=== PATIENT | female | born 1970 | race Caucasian/White ===

== ENCOUNTER 2018-07-26 12:58 | Outpatient (REF) | payer OTHER, SELFPAY ==
[2018-07-26 19:32] LABS: Anion Gap 9.5 mmol/L (3-11); BUN 10 mg/dL (7-18); CO2 27.5 mmol/L (21.0-32.0); CREATININE 0.71 mg/dL (0.55-1.02); Chloride 102 mmol/L (98-107); Cholesterol 214 mg/dL (50-200); Glucose 90 mg/dL (70-100); HDL Cholesterol 77 mg/dL (40-60); LDL CHOLESTEROL 123 mg/dL (<100); Potassium 4.2 mmol/L (3.5-5.1); Sodium 139 mmol/L (136-145); Triglyceride 84 mg/dL (30-150)
== END 2018-07-26 12:59 ==
LOC: NCHCN 12:58
PROVIDERS: PCP Internal Medicine; Visit Provider Internal Medicine
DX: Z00.00 Encounter for general adult medical examination without abnormal findings (principal); Z13.228 Encounter for screening for other metabolic disorders; Z13.220 Encounter for screening for lipoid disorders
CPT/HCPCS: 80048; 80061; 83721

== ENCOUNTER 2019-03-14 14:36 | Outpatient (REF) | payer OTHER, SELFPAY ==
[2019-03-14 19:28] LABS: BUN 10 mg/dL (7-18); CREATININE 0.83 mg/dL (0.55-1.02); Calcium 9.7 mg/dL (8.5-10.1); Chloride 100 mmol/L (98-107); Glucose 99 mg/dL (70-100); Potassium 4.3 mmol/L (3.5-5.1); Sodium 140 mmol/L (136-145); TSH 2.32 uIU/mL (0.358-3.74); Vitamin B12 675 pg/mL (193-986)
== END 2019-03-14 14:56 ==
LOC: NCHCN 14:36
PROVIDERS: PCP Internal Medicine; Visit Provider Internal Medicine
DX: I10 Essential (primary) hypertension (principal); G62.9 Polyneuropathy, unspecified; M47.814 Spondylosis without myelopathy or radiculopathy, thoracic region
CPT/HCPCS: 80048; 82607; 84443

== ENCOUNTER 2019-07-11 00:49 | Outpatient (CLI) | payer OTHER, SELFPAY ==
--- NOTE | 2019-07-11 07:41 | DI.MAMMO_ITS ---
SYMPTOM/DIAGNOSIS: SCREENING Z12.31, PREVENTATIVE CARE Z00.00 MAMMOGRAM: 07/11 Mammograms were interpreted according to the usual protocol including computer analysis with CAD system, tomosynthesis and C view imaging. The breasts are heterogeneously dense. No dominant mass or clumped microcalcifications identified in either breast. The current examination is compared with previous examinations including March 2018 and there has been no gross interval change in appearance in comparison with the previous studies. CONCLUSION: No specific evidence of malignancy at this time. Routine screening examinations are suggested at yearly intervals in this age group according to the ACS/ACR guidelines. Category 1, breast density category C. SA ASSESSMENT OF FINDINGS: Negative. Category 1. Patient will receive a letter notifying them of these results. Bi-RADS category C. The breasts are heterogeneously dense, which may obscure small masses.
== END 2019-07-11 01:09 ==
PROVIDERS: PCP Internal Medicine; Visit Provider Internal Medicine
DX: Z12.31 Encounter for screening mammogram for malignant neoplasm of breast (principal); Z00.00 Encounter for general adult medical examination without abnormal findings
CPT/HCPCS: 77063; 77067

== ENCOUNTER 2020-06-10 15:38 | Outpatient (REF) | payer OTHER, SELFPAY ==
[2020-06-10 20:28] LABS: Anion Gap 7.5 mmol/L (3-11); BUN 13 mg/dL (7-18); CO2 30.5 mmol/L (21.0-32.0); CREATININE 0.79 mg/dL (0.55-1.02); Calcium 9.3 mg/dL (8.5-10.1); Chloride 101 mmol/L (98-107); Glucose 106 mg/dL (74-106); Potassium 3.9 mmol/L (3.5-5.1); Sodium 139 mmol/L (136-145)
== END 2020-06-10 15:58 ==
LOC: NCHCN 15:38
PROVIDERS: PCP Internal Medicine; Visit Provider Internal Medicine
DX: I10 Essential (primary) hypertension (principal); M47.814 Spondylosis without myelopathy or radiculopathy, thoracic region
CPT/HCPCS: 80048

== ENCOUNTER 2020-08-06 04:00 | Outpatient (CLI) | payer OTHER, SELFPAY ==
--- NOTE | 2020-08-06 15:55 | DI.MAMMO_ITS ---
EXAM: MAMMO SCREENING CLINICAL HISTORY: SCREENING, TECHNIQUE: Mammograms were interpreted according to the usual protocol including computer analysis w [employer] CAD system, tomosynthesis and C-view imaging. COMPARISON: 2011 through 2018 FINDINGS: The breasts are composed of heterogeneously dense fibroglandular densities, Breast Density category C . No suspicious masses or suspicious microcalcifications are seen. No skin thickening or abnormal axillary lymph nodes are seen. There has been no significant change from prior exams. IMPRESSION: BI-RADS Category 1: Negative mammogram Yearly screening mammography is recommended. Breast Density - Category C, heterogeneously dense tissue which decreases the sensitivity of the mamm ogram. The mammogram demonstrates the patient's breast tissue is dense. Dense breast tissue is very common a nd is not abnormal but dense breast tissue can make it harder to find cancer on a mammogram. Also, de nse breast tissue may increase breast cancer risk. This information about the result of the mammogram report was provided to the patient to raise their awareness. Use this report when you speak with the patient about their risks for breast cancer, which includes their family history. At that time, you may recommend additional screening tests (Ultrasound or MRI) as they might be useful based on their r isk. A negative radiographic report should not delay biopsy if a dominant or clinically suspicious mass is present. Up to ten percent of cancers are not identified on mammography. A negative report may reinforce clinical impression. Adenosis and dense breasts may obscure an underlying neoplasm. False positive reports average 6 to 10%.
== END 2020-08-06 04:20 ==
PROVIDERS: PCP Internal Medicine; Visit Provider Internal Medicine
DX: Z12.31 Encounter for screening mammogram for malignant neoplasm of breast (principal); R92.2 Inconclusive mammogram
CPT/HCPCS: 77063; 77067

== ENCOUNTER 2021-07-25 11:47 | Outpatient (REF) | payer OTHER, SELFPAY ==
[2021-07-27 16:48] LABS: COVID-19 RT-PCR UVMMC Result Negative (Negative)
== END 2021-07-25 11:48 | disposition home or self-care (01) ==
LOC: NCHCN 11:47
PROVIDERS: PCP Internal Medicine; Visit Provider Internal Medicine
DX: Z11.52 Encounter for screening for COVID-19 (principal); Z20.822 Contact with and (suspected) exposure to COVID-19
CPT/HCPCS: U0003

== ENCOUNTER 2021-08-02 16:54 | Outpatient (REF) | payer OTHER, SELFPAY | END 2021-08-02 16:55 | disposition home or self-care (01) | LOC: NCHCN 16:54 | PROVIDERS: PCP Internal Medicine; Referring Provider Physician Assistant; Visit Provider Physician Assistant | DX: N89.8 Other specified noninflammatory disorders of vagina (principal) | CPT/HCPCS: 87480; 87510; 87660 ==

== ENCOUNTER 2021-08-10 01:43 | Outpatient (CLI) | payer OTHER, SELFPAY ==
--- NOTE | 2021-08-10 | DI.RAD_ITS ---
Exam(s) XR SHOULDER RT COMPLETE 2+V EXAM: XR SHOULDER RT COMPLETE 2+V CLINICAL HISTORY: PAIN RT SHOULDER, M25.511. TECHNIQUE: 2D digital imaging was performed. COMPARISON: No exams were available for comparison FINDINGS: BONES: No acute fracture is present. No bony destructive lesion is seen. JOINTS: No dislocation present. Mild hypertrophic changes are seen at the acromioclavicular joint. SOFT TISSUE: Normal. IMPRESSION: Mild degenerative changes of the right AC joint. DATA REPOSITORY: RADIATION DOSE DELIVERED:
== END 2021-08-10 02:03 ==
PROVIDERS: PCP Internal Medicine; Visit Provider Internal Medicine
DX: M25.511 Pain in right shoulder (principal); M19.011 Primary osteoarthritis, right shoulder
CPT/HCPCS: 73030

== ENCOUNTER 2021-10-13 09:09 | Outpatient (REF) | payer OTHER, SELFPAY ==
[2021-10-13 19:13] LABS: HCT 39.8 % (36.0-46.0); HGB 12.7 g/dL (11.2-15.7); MCH 29.5 pg (27.0-33.0); MCHC 31.9 % (32.0-36.0); MCV 92.6 fL (80-95); MPV 10.4 fL (8.0-11.0); Platelet Count 342 10^3/uL (130-400); RDW 12.6 % (11.7-14.6); RDW-SD 42.8 fL; WBC 7.79 10^3/uL (4.4-10.8)
[2021-10-13 19:52] LABS: Hemoglobin A1C 5.5 % (<5.7); TSH 2.22 uIU/mL (0.36-3.74)
== END 2021-10-13 09:10 | disposition home or self-care (01) ==
LOC: NCHCN 09:09
PROVIDERS: PCP Internal Medicine; Visit Provider Internal Medicine
DX: R53.83 Other fatigue (principal); N92.0 Excessive and frequent menstruation with regular cycle
CPT/HCPCS: 85027; 83036; 84443

== ENCOUNTER 2021-10-14 01:54 | Outpatient (CLI) | payer OTHER, SELFPAY ==
--- NOTE | 2021-10-14 06:45 | DI.US_ITS ---
Exam(s) US PELVIS TRANSVAGINAL EXAM: US PELVIS TRANSVAGINAL CLINICAL HISTORY: Menorrhagia, N92.0 TECHNIQUE: Transabdominal and transvaginal imaging was performed using standard protocol. COMPARISON: No exams were available for comparison FINDINGS: KIDNEYS: Kidneys are symmetric in size. No evidence of renal calculi. No evidence of hydronephrosis. No renal mass or cyst identified. UTERUS: Anteverted. 8.5 x 4.3 x 4.2 cm Endometrium: 7 millimeters. No focal abnormality. Myometrium: Heterogeneous. Small anterior myometrial fibroids. Cervix: Nabothian cysts OVARIES: Right: Cyst or mass: None. Left: Cyst or mass: None. DOPPLER: Color: Symmetric and uniform flow to both ovaries. No hyperemia. Duplex: Normal ovarian arterial waveforms visualized. CUL-DE-SAC: Free fluid: None. IMPRESSION: 1. Small myometrial fibroids. Endometrial stripe within normal limits. 2. Unremarkable bilateral ovaries. DATA REPOSITORY:
--- NOTE | 2021-10-14 09:43 | DI.MAMMO_ITS ---
Exam(s) MAMMO SCREENING EXAM: MAMMO SCREENING CLINICAL HISTORY: screening, Z12.39 TECHNIQUE: Mammograms were interpreted according to the usual protocol including computer analysis w [employer] CAD system, tomosynthesis and C-view imaging. COMPARISON: 2011 through 2019 FINDINGS: The breasts are composed of heterogeneously dense fibroglandular densities, Breast Density category C . No suspicious masses or suspicious microcalcifications are seen. No skin thickening or abnormal axillary lymph nodes are seen. There has been no significant change from prior exams. IMPRESSION: BI-RADS Category 1, Negative mammogram. Yearly screening mammography is recommended. Breast Density Category C, heterogeneously Dense. The mammogram demonstrates the patient's breast tissue is dense. Dense breast tissue is very common a nd is not abnormal but dense breast tissue can make it harder to find cancer on a mammogram. Also, de nse breast tissue may increase breast cancer risk. This information about the result of the mammogram report was provided to the patient to raise their awareness. Use this report when you speak with the patient about their risks for breast cancer, which includes their family history. At that time, you may recommend additional screening tests (Ultrasound or MRI) as they might be useful based on their r isk. A negative radiographic report should not delay biopsy if a dominant or clinically suspicious mass is present. Up to ten percent of cancers are not identified on mammography. A negative report may reinforce clinical impression. Adenosis and dense breasts may obscure an underlying neoplasm. False positive reports average 6 to 10%.
== END 2021-10-14 02:14 ==
PROVIDERS: PCP Internal Medicine; Visit Provider Nurse Practitioner Family
DX: Z13.21 Encounter for screening for nutritional disorder (principal); N92.0 Excessive and frequent menstruation with regular cycle; D25.1 Intramural leiomyoma of uterus
CPT/HCPCS: 77063; 77067; 76830; 76856

== ENCOUNTER 2021-10-21 00:45 | Outpatient (CLI) | payer OTHER, SELFPAY ==
--- NOTE | 2021-10-21 06:45 | DI.MRI_ITS ---
Exam(s) MR UPPER JOINT RT WO EXAM: MR UPPER JOINT RT WO CLINICAL HISTORY: ? ROTATOR CUFF TEAR,PAIN,ARTHRITIS RT AC JOINT,BURSITIS,BICEPS TENDINITIS. TECHNIQUE: Multiplanar multisequence MRI was performed. COMPARISON: None. FINDINGS: Bones: There is no fracture or contusion pattern. The acromioclavicular joint shows moderate spurring as wel l as high signal in the joint and adjacent end of the clavicle. There is mild impingement on the dis wanda supraspinatus muscle. There is spurring at the tip of the acromion. There is a minimal amount o f fluid in the sub acromial subdeltoid bursa and subcoracoid region. Glenohumeral joint: No glenohumeral joint effusion is present. Rotator Cuff: The supraspinatus and infraspinatus tendons are intact. The subscapularis and teres minor are normal. Labrum and biceps anchor: The biceps tendon is located. The anchor is well maintained. The labrum is grossly within normal limi ts. IMPRESSION: AC joint spurring and arthritis with mild impingement. No evidence of rotator cuff tear. DATA REPOSITORY:
== END 2021-10-21 01:05 ==
PROVIDERS: PCP Internal Medicine; Visit Provider Student in an Organized Health Care Education/Training Program
DX: M19.011 Primary osteoarthritis, right shoulder (principal); M75.21 Bicipital tendinitis, right shoulder; M75.51 Bursitis of right shoulder; M75.81 Other shoulder lesions, right shoulder
CPT/HCPCS: 73221

== ENCOUNTER 2022-02-03 09:28 | Outpatient (REF) | payer OTHER, SELFPAY ==
--- NOTE | 2022-02-03 08:30 | PAPFT_PTH ---
PATIENT: Claudia Franks LOC: [facility] U#:[id number] AGE/SX: 52/F ROOM: RE02/03/[address]: Marija Weathers DO : 1970 BED: DIS: 02/03/2022 SPEC #: [id number] RECD: 02/03/22 13:09 STATUS: [facility] REQ #: [id number] AMEYA: 02/03/22 08:[address]: Marija Weathers DEPT: [facility] Cytology RECD BY: Yazmin Yanes ENTERED: 02/03/22 13:09 SP TYPE: PAPFT OTHR DR: Deepak Lechuga Tissues: 1 - CX/ENDOCX FOR PAP SMEARS Procedures: PAP THIN PREP/[facility] Screening HPV DNA PROBE Comments: [id number] (CHLAMYDIA/GC)
[2022-02-07 07:21] LABS: Chlamydia Result Negative (Negative); GC Result Negative (Negative)
== END 2022-02-03 09:29 | disposition home or self-care (01) ==
LOC: LBN 09:28
PROVIDERS: PCP Internal Medicine; Visit Provider Obstetrics & Gynecology
DX: Z12.4 Encounter for screening for malignant neoplasm of cervix (principal); Z11.51 Encounter for screening for human papillomavirus (HPV); Z11.3 Encounter for screening for infections with a predominantly sexual mode of transmission
CPT/HCPCS: 87491; 87591; 88142; 87624

== ENCOUNTER 2022-03-08 02:28 | Outpatient (CLI) | payer OTHER, SELFPAY ==
[2022-03-08 12:49] LABS: Source Nasal/Nares
[2022-03-08 23:21] LABS: COVID-19 PCR Negative (Negative)
== END 2022-03-08 02:29 | disposition home or self-care (01) ==
LOC: LBO 02:28
PROVIDERS: PCP Internal Medicine; Visit Provider Student in an Organized Health Care Education/Training Program
DX: Z20.822 Contact with and (suspected) exposure to COVID-19 (principal); Z01.818 Encounter for other preprocedural examination
CPT/HCPCS: 87635

== ENCOUNTER 2022-03-10 07:28 | Day surgery (SDC) | payer OTHER, SELFPAY ==
[2022-03-10] VITALS (9 sets, daily range): BP systolic 87–114; BP diastolic 34–73; PULSE 70–80; RESP 14–25; TEMP 36–36.5; O2SAT 99–100; BMI 28.8
--- NOTE | 2022-03-10 08:19 | ANES.PREOP_ITS ---
General Info Date of Service Date Performed: 03/10/22 Height: 5 ft 5 in Weight: 78.7 kg Body Mass Index (BMI): 28.8 Surgical Procedure: Operation Date: 03/10/22 08:55 Proposed Procedure Side Surgeon p Shoulder Arthroscopy w/Extensive Debridement,Biceps Tenodesis,Subacromial Decompression and Distal Clavicle Excision Right Gurjit Lopez MD Meds Allergies and Home Medications Allergies Allergy/AdvReac Type Severity Reaction Status Date / Time amoxicillin Allergy Severe Anaphylaxis Unverified 03/10/22 07:35 penicillin G Allergy Severe Anaphylaxsi Unverified 03/10/22 07:35 s doxycycline Allergy Intermediate Skin Rash Unverified 03/10/22 07:35 erythromycin base Allergy Intermediate Hives Unverified 03/10/22 07:35 gabapentin Allergy Intermediate Skin Rash Unverified 03/10/22 07:35 levofloxacin [From Levaquin] Allergy Intermediate Cardiac Unverified 03/10/22 07:35 Dysrhythmia Sulfa (Sulfonamide Allergy Intermediate Hives Unverified 03/10/22 07:35 Antibiotics) Tetracyclines Allergy Intermediate Skin Rash Unverified 03/10/22 07:35 codeine AdvReac Intermediate Nausea Unverified 03/10/22 07:35 azithromycin AdvReac Mild Hives Unverified 03/10/22 07:35 Home Medication Medication Instructions Recorded ibuprofen 800 mg tablet 800 mg PO TID PRN PRN 09/22/16 bupropion HCl 150 mg tablet,12 hr 150 mg PO BID 09/28/21 sustained-release (Wellbutrin SR) topiramate 100 mg tablet (Topamax) 100 mg PO DAILY 09/28/21 triamterene 37.5 1 tab PO DAILY 09/28/21 mg-hydrochlorothiazide 25 mg tablet phentermine 30 mg capsule 30 mg PO DAILY 10/04/21 tramadol 300 mg capsule 24 300 mg PO DAILY PRN cap 10/25/21 hr,extended release metronidazole 500 mg tablet 500 mg PO BID #10 tab 03/07/22 aspirin 81 mg tablet,delayed 81 mg PO DAILY 14 Days #14 tab 03/10/22 release naproxen 250 mg tablet 250 - 500 mg PO BID PRN #20 tab 03/10/22 oxycodone 5 mg tablet 5 - 10 mg PO Q4H PRN #18 tab MDD 03/10/22 30 mg Current Visit Medications: Current Medications Generic Name Dose Route Start Last Admin Trade Name Freq PRN Reason Stop Dose Admin Ringer's Solution 1,000 mls @ 100 mls/hr 03/10/22 06:00 IV 04/08/22 23:59 [facility] Cefazolin Sodium/Dextrose 2 gm in 50 mls @ 100 mls/hr 03/10/22 06:00 Ancef Duplex IVPB 04/08/22 23:59 PREOP RONEL IV Miscellaneous Supplies 1 each 03/10/22 06:00 Iv Access IV 04/08/22 23:59 DIRECTED RONEL Naproxen 250 - 500 mg 03/10/22 07:23 Naproxen 500 Mg Tab PO BID PRN PRN Oxycodone HCl 5 - 10 mg 03/10/22 07:23 Oxycodone 5 Mg Tab PO Q4H PRN PRN Sodium Chloride 0 ml 03/10/22 06:00 Normal Saline Flush 10 Ml Syr IV 04/08/22 23:59 PRN PRN Sodium Chloride 0 ml 03/10/22 06:00 Normal Saline 10 Ml Vial IJ 04/08/22 23:59 DIRECTED PRN Sterile Water 0 ml 03/10/22 06:00 Water,Injection,Sterile 10 Ml Vial IJ 04/08/22 23:59 DIRECTED PRN PFSH Active Problems Active Problems: Problem Status Onset Code Thoracic spondylosis without myelopathy M47.814 Menorrhagia N92.0 Arthritis of right acromioclavicular joint M19.011 Bursitis of right shoulder M75.51 Right rotator cuff tendonitis M75.81 Biceps tendinitis of right shoulder M75.21 Medical History Medical History Depression GERD (gastroesophageal reflux disease) Heart palpitations per pt. does not have Hemangioma of vertebral body HTN (hypertension) Scoliosis Varicose vein of leg Tobacco Smoking/Tobacco Use Status: Former Tobacco Use Alcohol Alcohol Intake: current Alcohol intake frequency: holidays/special occasions onl y Substance Use Substance use: Never Substance use type: does not use Vital Signs and Lab Results Vital Signs Most Recent Vital Signs in EMR: Most Recent Vital Signs Temp Pulse Resp BP Pulse Ox 36.1 C L 80 16 114/73 99 03/10/22 08:01 03/10/22 08:01 03/10/22 08:01 03/10/22 08:01 03/10/22 08:01 Point of Care Results Point of Care Results: POC- Test(urine) Negative 03/10/22 08:00 Lab Results Blood Type / Crossmatch: No Data to Display Complete Blood Count: No Data to Display Complete Metabolic Panel: No Data to Display Liver Function Panel: No Data to Display Coagulation Panel: No Data to Display Cardiac Panel: No Data to Display Arterial Blood Gas: No Data to Display Venous Blood Gas: No Data to Display Pancreas Panel: No Data to Display Thyroid Panel: No Data to Display Infectious Disease: Coronavirus (COVID-19)(PCR) Negative (Negative) 03/08/22 08:35 03/08/22 Coronavirus 2019 Source Nasal/Nares 03/08/22 08:35 03/08/22 Blood Cultures: No Data to Display Toxicology Panel: No Data to Display Panel: No Data to Display Anesthesia Assessment and Plan Anesthesia History Personal History: No History of Anesthesia Complications Family History: No Family History of Anesthesia Complications Exercise Tolerance Exercise Tolerance: Metabolic Equivalents>4 Pertinent Negatives Pertinent Negatives: No Symptoms of GERD, No Major Cardiovascular Symptoms or Complaints and No Major Pulmonary Symptoms or Complaints Cardiac & Pulmonary Exam Cardiac Exam: Normal S1/S2 Heart Sounds Pulmonary Exam: Clear Bilateral Breath Sounds Implantable Cardiac Device Does patient have a Pacemaker or an ICD?: No Airway Exam Known Difficult Airway: No Mallampati Class: 2 Mouth Opening: Normal (> 3cm) Thyromental Distance: Greater than 3 cm Neck Range of Motion: Full ROM Neck Circumference: Normal Teeth Condition: Normal Dentition ASA Classification ASA Score: ASA 2 Emergency Case?: No NPO Status NPO Status: NPO Clears >2 hours, Solids >8 hours Status Status: Negative HCG Anesthesia Plan Resuscitation Status: Full Code Anesthesia Technique: General Anesthesia Airway Planned: Endotracheal Tube Pain Management: Surgeon and patient request nerve block Monitors Used: Standard Monitors and SedLine Preoperative Comments:: Patient reports no significant concerns about thoracic pain, no anesthetic complications in the past, reviewed allergy list. Plan for Right ISB and superficial cervical plexus block with Exparel.
[2022-03-10] MEDS: Lactated Ringers 1,000 ML 100 ML IV (08:47)
[2022-03-10] MEDS: ceFAZolin 2 GM/50 ML BAG IVPB (09:39)
--- NOTE | 2022-03-10 10:12 | W.ANESNERVE ---
Nerve Block Single Injection Procedure Date and Time Date Performed: 03/10/22 Procedure Start: 09:03 Location Where Procedure Performed Procedure Location: Day Surgery Unit Reason Performed: Postoperative Analgesia Requesting Provider: Gurjit Lopez Timeout Performed Timeout Performed: Yes Monitoring Used ECG, Blood Pressure, SpO2 and See EMR for corresponding vital signs Sterility Sterility: Hand Hygiene, Surgical Cap, Surgical Mask, Sterile Gloves, Eye Protection and Chlorhexidine Sedation Given During Procedure Sedation Given (Indicate Dose Given): Versed IV Dose:: 2mg Patient Mental Status Patient Mental Status: Sedate with meaningful communication Nerve Block 1st Nerve Block: Laterality: Right Block Type: Superficial Cervical Plexus Needle / Catheter Used: 80mm SonoPlex II Local Anesthetic Bolus (Indicate Dose Given): Lidocaine used for local infiltration of skin, Bupivacaine 0.5% Dose:: 4mL and Exparel Dose:: 1mL Additives (Indicate Dose Given): None Ultrasound: Sterile probe cover and gel used Ultrasound Image Saved?: Yes Nerve Stimulator: Not Used Paresthesia: Right Paresthesia Duration: Transient Procedure Tolerated: No Complications Procedure Outcome: Successful Performed By: Michelle Bell 2nd Nerve Block: Laterality: Right Block Type: Interscalene Needle / Catheter Used: 80mm SonoPlex II Local Anesthetic Bolus (Indicate Dose Given): Lidocaine used for local infiltration of skin, Injected in 3-5ml increments after negative blood aspiration, Bupivacaine 0.5% Dose:: 14mL and Exparel Dose:: 9mL Additives (Indicate Dose Given): None Ultrasound: Sterile probe cover and gel used Ultrasound Image Saved?: Yes Nerve Stimulator: Not Used Paresthesia: None Procedure Tolerated: No Complications Procedure Outcome: Successful Performed By: Michelle Bell
[2022-03-10] MEDS: EPINEPHrine 30 MG/30 ML VIAL (10:45)
--- NOTE | 2022-03-10 11:00 | W.PM.OP ---
Date of service: 03/10/22 Time of Service: 09:00 Operative Note Operative Note DATE OF PROCEDURE: 03/10/22 PRE-OP DIAGNOSIS: Right: 1. ACJ arthritis 2. LHB tendinopathy 3. Bursitis 4. Impingement POST-OP DIAGNOSIS: same PROCEDURE: Right: 1. Arthroscopic biceps tenodesis, CPT# 81936. This involved arthroscopically suturing and reattaching the long head of the biceps tendon to the proximal humerus at the superior margin of the bicipital groove with a screw at the correct tension. 2. Extensive debridement, CPT# 10909. This involved using arthroscopic hand instruments, power instruments, and radiofrequency instruments to release the long head of the biceps tendon and debride areas of labral tearing, release anterior capsular scarring and [facility] L synovitis, and chondromalacia about the biceps groove working within the glenohumeral joint anteriorly, superiorly and posteriorly. 3. Subacromial decompression with partial acromioplasty, CPT# 43613. This involved using arthroscopic power instruments and a radiofrequency wand to complete a bursectomy and remove bone spurs on the undersurface of the acromion. 4. Arthroscopic distal clavicle excision, CPT# 78356. This involved arthroscopically exposing the underside of the acromioclavicular joint, smoothing out bone spurs, and removing approximately 5 mm of the distal clavicle so there was no bone left engaging the acromion. The behavioral health assistant was medically required in order to help assist in techniques above, which require positioning the arm, holding the arthroscope, and manipulating multiple instruments and sutures at the same time. This cannot be done without the help of an experienced behavioral health assistant. SURGEON: Gurjit Lopez POLISHER AND SANDER: Mana Araya ANESTHESIA TYPE: General LMA/ETT and Primary Nerve Block Refer to Anesthesia Record ESTIMATED BLOOD LOSS: 15 PATHOLOGY: none sent COMPLICATIONS: None Patient was transported to: PACU Patient's condition: stable Implants: Arthrex: 4.75mm SwiveLocks x 1 Indications: The patient was diagnosed with the above conditions and appropriately indicated for surgical intervention. Please see complete medical record for details. Findings: Exam under anesthesia: Full range of motion, no instability Glenohumeral joint: Significant anterior superior synovitis. No significant subscapularis or articular rotator cuff tearing. Mild bicipital groove chondromalacia. Moderate anterior labral fraying and inflammation extending to the [facility]. Subacromial space: Significant bursitis. Significant impinging distal clavicle acromion and moderate undersurface acromial bone spurring. Intact bursal rotator cuff with superficial inflammatory degenerative changes. Procedure Description: In the operating room, general anesthesia was induced. Bilateral shoulders were examined. The patient was positioned in the beachchair position. All bony prominences were well-padded. Preoperative antibiotics were administered. The shoulder was prepped and draped in the usual sterile fashion. The correct patient, procedure, and side of the procedure were all verified prior to incision. Starting through the posterior portal a standard complete diagnostic arthroscopy was performed of the glenohumeral joint including inspection of the long head of the biceps, anterior and superior labrum, subscapularis tendon, supraspinatus and infraspinatus tendons, and axillary recess. The glenoid and humeral head cartilage as well as the posterior labrum were inspected from an anterior viewing portal. Significant findings and interventions noted above. An all-arthroscopic suprapectoral biceps tenodesis was performed through an anterior portal using a Loop N Tack method with a SutureTape FiberLink cinched around and through the tendon. The biceps was tenotomized from the labrum and fixated with a suture anchor at the superior margin of the bicipital groove. Starting through the posterior portal, the arthroscope was directed into the subacromial space. A lateral 50 yard line lateral portal was created. A combination of power instruments and a radiofrequency ablator were used to debride bursitis anteriorly, posteriorly, and laterally as well as expose and smooth bone spurring on the undersurface of the acromion. The coracoacromial ligament was partially released. The bursectomy was completed viewing laterally and working from posteriorly and the rotator cuff was thoroughly inspected with findings noted above. The anterior portal was redirected towards the undersurface of the AC joint. A shaver and electrocautery device were used to clear soft tissue from the undersurface of the AC joint. The distalmost 5 mm of the distal clavicle was then removed and smoothed. Care was taken to alternate between working through the anterior portal and viewing through the anterior portal to ensure that proper amount of bone was removed and there was no engaging bone left behind especially superiorly. The shoulder was drained of arthroscopic fluid. All portal sites were copiously irrigated. These incisions were closed using 3-0 Monocryl in a buried fashion and then covered with Mastisol, Steri-Strips, Xeroform, dry gauze, and ABDs. The dressings were covered and secured with Medipore tape. The operative extremity was placed into a sling for immobilization. The patient awoke from anesthesia without complication and was transferred to the recovery room in a stable condition.
--- NOTE | 2022-03-10 11:05 | W.PM.DSUDISC ---
Discharge Plan Disposition Patient Disposition: HOME Condition: Stable Discharge Details Reason For Visit: Right shoulder surgery Attending Provider: Gurjit Lopez Primary Care Provider: Deepak Lechuga Home Meds and New Rx's Prescriptions: New naproxen 250 mg tablet 250 - 500 mg PO BID PRNQty: 20 0RF Rx Instructions: take with a meal aspirin 81 mg tablet,delayed release (DR/EC) 81 mg PO DAILY 14 Days Qty: 14 0RF oxycodone 5 mg tablet 5 - 10 mg PO Q4H MDD 30 mg PRN (Reason: moderate to severe pain) Qty: 18 0RF Continued topiramate [Topamax] 100 mg tablet 100 mg PO DAILY 0RF bupropion HCl [Wellbutrin SR] 150 mg tablet sustained-release 12 hr 150 mg PO BID 0RF triamterene-hydrochlorothiazid 37.5-25 mg tablet 1 tab PO DAILY 0RF phentermine 30 mg capsule 30 mg PO DAILY 0RF Rx Instructions: must administer 2 hours after breakfast tramadol 300 mg capsule,ER biphase 24 hr 17-83 300 mg PO DAILY PRN0RF metronidazole 500 mg tablet 500 mg PO BID Qty: 10 0RF ibuprofen 800 MG tablet 800 mg PO TID PRN PRN0RF Discharge Instructions Additional Instructions: Surgery: Right shoulder arthroscopy with biceps tenodesis, distal clavicle excision, extensive debridement, and subacromial decompression. Activity: You should gradually increase range of motion motion and use of your shoulder. Please perform daily stretching exercises. You may use your shoulder for all regular activities. Avoid heavy lifting, reaching overhead, and lifting away from body for approximately 6 to 8 weeks. You may use the sling whenever you are out of the house for a few weeks. At home it is best to remove the sling and rest the arm on a pillow at your side or support the operative side with your other hand. A physical therapy prescription will be sent electronically to start in about 3 weeks. Prescriptions: Aspirin 81 mg take 1 daily to prevent a blood clot for 2 weeks Naproxen 250 mg take 1-2 every 12 hours with a meal as needed for moderate pain Oxycodone 5 mg take 1-2 every 4-6 hours as needed for severe pain You may use aarl-nzr-fzxxkoa Tylenol (acetaminophen) as needed for mild pain. These pain medications may be taken all at once or in different combinations as needed. Also, recommend Colace (docusate) as a stool softener as surgery and pain medicine cause constipation. Dressings: Remove shoulder bandage after 3 days. Leave the sticky Steri-Strips in place until they fall off or remove them after you shower. Cover the incisions with Band-Aids or leave them open to air. You may shower after 5 days. Follow-up: 10-[address] Lopez You may take off the leg compression stockings this evening at home. You may also leave them on a few days longer if you have a history of leg swelling or edema. Let us know right away if you develop any redness, drainage, fevers, chest pain, or trouble breathing. Do not drink alcohol or drive for at least 24 hours after anesthesia. Please call the office during business hours with any questions or concerns. Referrals: Gurjit Lopez MD [ [facility] STAFF PHYSICIAN] - Discharge Orders Discharge Orders: Discharge Order (Routine); Ordered 03/10/22 Ordered By: Gurjit Lopez DS: Diagnosis Discharge Diagnosis (1) Arthritis of right acromioclavicular joint: Status: Acute (2) Bursitis of right shoulder: Status: Acute (3) Biceps tendinitis of right shoulder: Status: Acute (4) Right rotator cuff tendonitis: Status: Acute
--- NOTE | 2022-03-10 15:07 | W.ANESPOSTOP ---
Postoperative Evaluation Date, Time and Location Date Performed: 03/10/22 Time Performed: 15:07 Patient Location: Day Surgery Unit Vital Signs Most Recent Imported Vital Signs: Most Recent Vital Signs Temp Pulse Resp BP Pulse Ox 36 C L 70 18 102/57 L 99 03/10/22 12:20 03/10/22 12:20 03/10/22 12:20 03/10/22 12:20 03/10/22 12:20 Pain Score Most Recent Pain Score: Most Recent Pain Score Pain Level 0 03/10/22 12:20 Assessment Mental Status: Awake (Alert & Oriented to Patient Baseline) Airway and Respiratory Function: Patent airway with normal (patient baseline) respiratory exam Cardiovascular Function: Hemodynamically Stable Hydration Status: Adequately Hydrated Nausea & Vomiting: No Nausea or Vomiting Pain: Pain is tolerable per patient Peripheral Nerve Block: Regional nerve block not resolved at time of post operative discharge
== END 2022-03-10 12:57 | disposition home or self-care (01) ==
PROVIDERS: PCP Internal Medicine; Visit Provider Student in an Organized Health Care Education/Training Program
PROC: (CPT 29805; principal; 2022-03-10 08:45)
DX: M19.011 Primary osteoarthritis, right shoulder (principal); M75.21 Bicipital tendinitis, right shoulder; M75.51 Bursitis of right shoulder; M75.81 Other shoulder lesions, right shoulder; I10 Essential (primary) hypertension; K21.9 Gastro-esophageal reflux disease without esophagitis
CPT/HCPCS: 29828; 29823; 29824; 29826; 76942; 81025; J0690; J1100; J2001; J2250; J2370; J2405; J2704

== ENCOUNTER 2022-03-21 20:09 | Outpatient (REF) | payer OTHER, SELFPAY | END 2022-03-21 20:10 | disposition home or self-care (01) | LOC: NCHCN 20:09 | PROVIDERS: PCP Internal Medicine; Visit Provider Nurse Practitioner Family | DX: N39.0 Urinary tract infection, site not specified (principal) | CPT/HCPCS: 87077; 87086; 87186 ==

== ENCOUNTER 2022-04-20 10:35 | Outpatient (REF) | payer OTHER, SELFPAY ==
[2022-04-20 19:05] LABS: ESR 2 mm/hr (0-20)
[2022-04-20 19:32] LABS: BUN 20 mg/dL (7-18); CREATININE 0.9 mg/dL (0.55-1.02); Calcium 9.2 mg/dL (8.5-10.1); Calculated LDL 108 mg/dL (<100); Chloride 104 mmol/L (98-107); Cholesterol 184 mg/dL (<200); Glucose 101 mg/dL (74-106); HDL Cholesterol 63 mg/dL (40-60); Potassium 4.1 mmol/L (3.5-5.1); Sodium 142 mmol/L (136-145); Triglyceride 69 mg/dL (<150)
[2022-04-20 19:44] LABS: C-Reactive Protein 0.22 mg/dL (0.0-0.3)
== END 2022-04-20 10:36 | disposition home or self-care (01) ==
LOC: NCHCN 10:35
PROVIDERS: PCP Internal Medicine; Visit Provider Internal Medicine
DX: I10 Essential (primary) hypertension (principal); M47.892 Other spondylosis, cervical region
CPT/HCPCS: 80048; 80061; 85652; 86140

== ENCOUNTER 2022-12-15 00:24 | Outpatient (CLI) | payer BC, SELFPAY ==
--- NOTE | 2022-12-15 | DI.MAMMO_ITS ---
Exam(s) MAMMO SCREENING EXAM: MAMMO SCREENING CLINICAL HISTORY: SCREENING, PREVENTATIVE CARE, Z00.00 TECHNIQUE: Bilateral full field digital CC and MLO mammographic images were obtained with 3D tomosyn thesis and utilizing computer aided detection (CAD). COMPARISON: Available for comparison. FINDINGS: Masses/Architectural Distortion: None seen. Microcalcifications: No suspicious pleomorphic-type are seen. Skin Thickening/Nipple Retraction: None. IMPRESSION: 1. No significant interval change with no specific features of malignancy noted. 2. Unless there is more urgent need, screening mammography is recommended, as per [employer] guidelines. BI-RADS Category 1 - Negative Breast Density - Category C - Heterogeneously dense Breast density category C or D implies that the patient has dense breast tissue. Dense breast tissue is very common and is not abnormal but dense breast tissue can make it harder to find cancer on a ma mmogram. Also, dense breast tissue may increase their breast cancer risk. This information about the result of the mammogram report was provided to the patient to raise their awareness. Use this report when you speak with the patient about their risks for breast cancer, which includes their family hist ory. At that time, you may recommend for more screening tests (Ultrasound or MRI) as they might be us eful based on their risk. A negative radiographic report should not delay biopsy if a dominant or clinically suspicious mass is present. Up to ten percent of cancers are not identified on mammography. A negative report may reinforce clinical impression. Adenosis and dense breasts may obscure an underlying neoplasm. False positive reports average 6 to 10%. Patient will receive a letter notifying them of these results.
== END 2022-12-15 00:44 ==
LOC: DI 00:25
PROVIDERS: PCP Internal Medicine; Visit Provider Internal Medicine
DX: Z00.00 Encounter for general adult medical examination without abnormal findings (principal); Z12.31 Encounter for screening mammogram for malignant neoplasm of breast; R92.2 Inconclusive mammogram
CPT/HCPCS: 77063; 77067

== ENCOUNTER 2023-05-10 15:06 | Outpatient (REF) | payer BC, SELFPAY ==
[2023-05-10 19:45] LABS: Anion Gap 8.1 mmol/L (3-11); BUN 11 mg/dL (7-18); CO2 27.9 mmol/L (21.0-32.0); CREATININE 0.8 mg/dL (0.55-1.02); Calcium 8.9 mg/dL (8.5-10.1); Chloride 102 mmol/L (98-107); Cholesterol 170 mg/dL (<200); Estimated GFR 89.15 (mL/min/1.73m2); Glucose 97 mg/dL (74-106); Potassium 4.1 mmol/L (3.5-5.1); Sodium 138 mmol/L (136-145); Triglyceride 55 mg/dL (<150)
[2023-05-10 20:27] LABS: Calculated LDL 94 mg/dL (<100); HDL Cholesterol 65 mg/dL (40-60)
== END 2023-05-10 15:07 | disposition home or self-care (01) ==
LOC: NCHCN 15:06
PROVIDERS: PCP Internal Medicine; Visit Provider Internal Medicine
DX: Z00.00 Encounter for general adult medical examination without abnormal findings (principal); I10 Essential (primary) hypertension
CPT/HCPCS: 80048; 80061

== ENCOUNTER → 2023-12-28 01:26 | Outpatient (CLI) | payer BC, SELFPAY ==
--- NOTE | 2023-12-28 15:25 | DI.MAMMO_ITS ---
Exam(s) MAMMO SCREENING EXAM: MAMMO SCREENING CLINICAL HISTORY: SCREENING, Z12.31 TECHNIQUE: Bilateral full field digital CC and MLO mammographic images were obtained with 3D tomosyn thesis and utilizing computer aided detection (CAD). COMPARISON: Available for comparison. FINDINGS: Masses/Architectural Distortion: None seen. Microcalcifications: No suspicious pleomorphic-type are seen. Skin Thickening/Nipple Retraction: None. IMPRESSION: 1. No significant interval change with no specific features of malignancy noted. 2. Unless there is more urgent need, screening mammography is recommended, as per [employer] guidelines. BI-RADS Category 1 - Negative Breast Density - Category C - Heterogeneously dense Breast density category C or D implies that the patient has dense breast tissue. Dense breast tissue is very common and is not abnormal but dense breast tissue can make it harder to find cancer on a ma mmogram. Also, dense breast tissue may increase their breast cancer risk. This information about the result of the mammogram report was provided to the patient to raise their awareness. Use this report when you speak with the patient about their risks for breast cancer, which includes their family hist ory. At that time, you may recommend for more screening tests (Ultrasound or MRI) as they might be us eful based on their risk. A negative radiographic report should not delay biopsy if a dominant or clinically suspicious mass is present. Up to ten percent of cancers are not identified on mammography. A negative report may reinforce clinical impression. Adenosis and dense breasts may obscure an underlying neoplasm. False positive reports average 6 to 10%. Patient will receive a letter notifying them of these results.
== END ==
PROVIDERS: PCP Internal Medicine; Visit Provider Internal Medicine
DX: Z12.31 Encounter for screening mammogram for malignant neoplasm of breast (principal); R92.323 Mammographic fibroglandular density, bilateral breasts
CPT/HCPCS: 77063; 77067

== ENCOUNTER 2024-02-27 11:16 | Outpatient (REF) | payer BC, SELFPAY ==
[2024-02-27 20:43] LABS: Bilirubin Negative (Negative); Blood Moderate (Negative); Clarity Clear (Clear); Glucose Negative (Negative); Ketones Negative (Negative); Leukocyte Esterase Trace (Negative); Nitrite Negative (Negative); Specific Gravity 1.025 (1.005-1.025); Urobilinogen 0.2 mg/dL (Up to 0.2); pH 5.5 (5-8)
[2024-02-27 20:53] LABS: Bacteria Moderate HPF (Negative); Epithelial Cells Moderate HPF (Negative); RBC 0-2 HPF (0-2)
[2024-02-27 20:54] LABS: C & S Indicated? No/Sq. Contamination; Casts Negative LPF (Negative); Crystals Negative HPF (Negative); Mucus Trace (Negative)
== END 2024-02-27 11:17 | disposition home or self-care (01) ==
LOC: NCHCN 11:16
PROVIDERS: PCP Internal Medicine; Visit Provider Internal Medicine
DX: R31.29 Other microscopic hematuria (principal)
CPT/HCPCS: 81003; 81015

== ENCOUNTER 2024-07-15 15:47 | Outpatient (CLI) | payer OTHER, BC, SELFPAY ==
--- NOTE | 2024-07-15 14:30 | DI.RAD_ITS ---
Exam(s) XR ELBOW LT COMPLETE EXAM: XR ELBOW LT COMPLETE CLINICAL HISTORY: LEFT ELBOW PAIN. TECHNIQUE: 2D digital imaging was performed of the left elbow. Three images were obtained. AP, lat eral and oblique views were obtained. COMPARISON: No exams were available for comparison FINDINGS: BONES: No acute fracture is present. No bony destructive lesion is seen. JOINTS: The elbow is normally aligned. No joint effusion is seen. SOFT TISSUE: Normal. IMPRESSION: Unremarkable radiographs of the left elbow. DATA REPOSITORY: RADIATION DOSE DELIVERED:
== END 2024-07-15 15:48 | disposition home or self-care (01) ==
LOC: DIORS 15:47
PROVIDERS: PCP Internal Medicine; Visit Provider Student in an Organized Health Care Education/Training Program
DX: M77.12 Lateral epicondylitis, left elbow (principal)
CPT/HCPCS: 73080

== ENCOUNTER 2024-08-27 01:09 | Outpatient (CLI) | payer OTHER, SELFPAY ==
--- NOTE | 2024-08-27 10:10 | DI.MRI_ITS ---
Exam(s) MR UPPER JOINT LT WO EXAM: MR UPPER JOINT LT WO CLINICAL HISTORY: L ELBOW INJURY,LATERAL EPICONDYLITIS,M77.12. TECHNIQUE: Multiplanar multisequence MRI was performed. COMPARISON: Plain films 15 July 2024 FINDINGS: Elbow joint: No joint effusion Bones: There is no fracture or contusion pattern. Biceps tendon: Intact. No tendinosis. Brachialis tendon: Intact. No tendinosis. Common flexor tendons: Intact. No tendinosis. Common extensor tendons: Thickening and high signal in the common extensor tendon probable partial te ar near origin. Soft tissues: Unremarkable. IMPRESSION: Increased signal in proximal common extensor tendon consistent with partial tear. DATA REPOSITORY:
== END 2024-08-27 01:29 ==
LOC: DI 01:10
PROVIDERS: PCP Internal Medicine; Visit Provider Student in an Organized Health Care Education/Training Program
DX: M77.12 Lateral epicondylitis, left elbow (principal)
CPT/HCPCS: 73221

== ENCOUNTER 2024-09-19 06:05 | Day surgery (SDC) | payer OTHER, BC, SELFPAY ==
[2024-09-19] VITALS (19 sets, daily range): BP systolic 112–134; BP diastolic 61–93; PULSE 67–80; RESP 13–23; TEMP 35.8–36.6; O2SAT 92–100; BMI 28.4
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
--- OUTSIDE RECORDS SUMMARY | 2024-09-19 06:07 | XMS_ITS | Encounter Summary ---
Author Organization [facility] [place] [address] Care Team Providers Care Principal Consulting Engineer Name Role Phone Deepak Lechuga MD Primary Care Provider Reason for Visit * Reason Comments Finger Pain Encounter Details Date Type Department Care Team (Late st Contact Info) Description 02/05/2013 2:43 PM EDT - 02/05/2013 6:42 PM EDT Emergency [place] [address] Adelaida Mike MD [facility] [place] [address] Finger infection (Primary Dx); Allergic reaction Discharge Disposition: Home Social History Tobacco Use Types Packs/Day Years Used Date Smoking Tobacco: Never Assessed Sex and Gender Information Value Date Recorded Sex Assigned at Not on file Gender Identity Not on file Sexual Orientation Not on file documented as of this encounter Last Filed Vital Signs Vital Sign Reading Time Taken Comments Blood Pressure 120/70 02/05/2013 5:49 PM EDT Pulse 72 02/05/2013 5:49 PM EDT Temperature 37.2 ??C (99 ??F) 02/05/2013 5:49 PM EDT Respiratory Rate 15 02/05/2013 5:49 PM EDT Oxygen Saturation 100% 02/05/2013 5:49 PM EDT Inhaled Oxygen Concentration - - Weight 78.5 kg (173 lb) 02/05/2013 2:47 PM EDT Height 165.1 cm (5' 5) 02/05/2013 2:47 PM EDT Body Mass Index 28.79 02/05/2013 2:47 PM EDT documented in this encounter Discharge Instructions * Patient Instructions* Clarita Garnica MD - 02/05/2013 5:05 PM EDT Orthopaedic Home Care Instructions You have been seen in the emergency department for concern regarding a left index finger infection.The infection was lanced and drained in the emergency department. You received one dose of IV ceftriaxone and oral doxycycline. You are being discharged with a prescription for doxycycline. You should follow-up with your primary care doctor tomorrow to see if you have had any improvement in your symptoms. He should decide whether or not to provide an additional dose of IV ceftriaxone if culture results or gram stain are still not available. If culture results are available he should tailor therapy accordingly. If he has any questions Dr. Siegel from Infectious Disease at [facility] has agreed to help guide your therapy. He can be reached at . You should soak your finger in warm soaks several times per day. You can use warm water with a bit of peroxide, betadine or hibaclens. You were also seen by the Orthopaedics Team and Dr. Rodriguez our Hand Specialist. If you have any questions or concerns for the Orthopaedic Surgeon, please call the following: Orthopaedic Clinic Sunday thru Sunday 8am - 5pm (see below) Orthopaedic Physician awake overnight monitor --After 5pm and Weekends [phone] If you develop fever, chills, increasing pain, swelling, redness or other worrisome symptoms pleasealso contact us at the numbers above. Your care today was provided by Nina Garnica MD If you would like to be seen again at [facility] for follow-up please contact us at the number below. General orthopedic clinic (trauma/sports/pediatrics) [phone] documented in this encounter Medications at Time of Discharge Medication Sig Dispensed Refills Start Date End Date pantoprazole (PROTONIX) 40 mg tablet Take 40 mg by mouth as needed. ibuprofen (ADVIL;MOTRIN) 800 mg tablet Take 800 mg by mouth every 6 hours as needed. LORazepam (ATIVAN) 0.5 mg tablet Take 0.5 mg by mouth as needed. doxycycline (VIBRA-TABS) 100 mg tablet Take 1 tablet by mouth 2 times daily. 20 tablet 0 02/05/2013 12/16/2015 OXYcodone-acetaminophen (PERCOCET) 5-325 mg per tablet Take 1 tablet by mouth every 4 hours as needed for Pain. 25 tablet 0 02/05/2013 12/16/2015 nicotine (NICODERM CQ) 21 mg/24 hr 09/26/2005 12/16/2015 documented as of this encounter ED Notes * Yvonne Ball RN - 02/05/2013 6:30 PM EDT Pt. Feeling less itchy after benadryl and feels good to be d/c'd * Yvonne Ball RN - 02/05/2013 6:00 PM EDT Pt. C/o chest and arms itchiness after waiting 1/2 hour after taking doxicycline [address] Mike notified and in to examine pt. Dr. Mingo velasquez called and came down to see pt. And will change doxycycline to different antibx after speaking with ID mary. * Gavin Marley RN - 02/05/2013 3:15 PM EDT Orthopedics in to assess pt. * Adelaida Mike MD - 02/05/2013 3:15 PM EDT Chief Complaint Patient presents with ??? Finger Pain HPI Allergies Allergen Reactions ??? Penicillins CIS - Anaphylaxis ??? Codeine Phosphate CIS - Nausea/Vomiting ??? Erythromycin Base CIS - Hives ??? Levaquin (Levofloxacin) Hives ??? Sulfa (Sulfonamide Antibiotics) CIS - Hives ??? Tetracyclines CIS - Rash Review of Systems Physical Exam Procedures MDM ED Course: Emergency Department Claudia Franks is a 43 y.o. female who presents to [facility] with L. Index finger infection History of Present Illness / Review of Systems The patient is resting comfortably in the bed Physical Exam: I reviewed the patient???s vitals as recorded in the electronic medical record and ED nursing notes. The patient was non-toxic appearing and in no obvious distress. Assessment/Plan: This 43 y.o. female was transferred from an outside hospital emergency department to receive specialty care provided by the hand surgery service for L. Index finger infection. I discussed the case with resident/fellow of the accepting service. The patient was deemed to be stable and not requiring si gnificant involvement from the attending emergency physician at this time. The accepting service has assumed further care of the patient. Please see their notes for any further clinical details. Adelaida Mike MD 02/05/13 1515 After being administered ceftriaxone and doxycycline the patient developed diffuse itchiness and some redness over her chest and neck. She does have a history of allergy to tetracycline. I discussed this with the orthopedics resident and she stated that she had discussed the antibiotic choices with infectious disease. It's not clear which antibiotic she is reacting to. I have given her 50 mg of Benadryl and will ask the orthopedic resident to revise the antibiotic prescription. She has no shortness of breath or throat tightness. Adelaida Mike MD 02/05/13 0386 * Gavin Marley RN - 02/05/2013 3:03 PM EDT To room 7, friend @ her side, pt index finger Left hand edematous, red painful. Rash noted on hand,forearm, and upper arm. Pt states her hand is painful from her finger to her bicep. documented in this encounter Miscellaneous Notes * Discharge Summary - Jailene Burnett - 02/06/2013 8:37 AM EDT * Miscellaneous - Provider, Jailene - 02/05/2013 8:17 PM EDT * Consult Note - Vasquez Rodriguez MD - 02/05/2013 5:44 PM EDT Intelligence Group Supervisor Consult Note Name: Claudia Franks Age: 43 y.o. Sex; Female Date of : 1970 PCP Deepak Lechuga MD [phone] Reason for Consult: We have been asked to see Claudia Franks at the request of Adelaida Mike MD, for evaluation of the patient's orthopaedic injuries and recommendations for treatment. I have reviewed the available records, interviewed and examined the patient. Date of Consultation: 02/05/2013 Place of Service: Emergency Department ID: 43 y.o. Female presents to 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 She thought that the wound had healed adequately, but noticed on Sunday that a bubble developed over the wound. This seemed to become increasingly swollen overthe course of the weekend. She was started on Keflex on Sunday. She notes that it became more red, painful and throbbing. Today she felt pain tracking up the dorsum of her hand and arm and noticed a bit of red streaking as well. She was seen by her primary care provider today who lanced the area and sent a small amount of serous appearing fluid for culture. He was concerned that there was not much material aspirated and sent her to [facility] for further evaluation. Review of Systems: She denies fever, chills, nausea, vomiting, shortness of breath. Past Medical and Surgical History: Back pain History of cellulitis of her left ear (required admission, ultimately treated with levoquin) Tonsillectomy Prior To Admission Medications: No current facility-administered medications on file prior to encounter. Current Outpatient Prescriptions on File Prior to Encounter Medication Sig Dispense Refill ??? naproxen sodium (ANAPROX DS) 550 mg tablet ??? nicotine (NICODERM CQ) 21 mg/24 hr lorazepam prn for sleep Keflex x2 days Allergies: Allergies Allergen Reactions ??? Penicillins CIS - Anaphylaxis ??? Codeine Phosphate CIS - Nausea/Vomiting ??? Erythromycin Base CIS - Hives ??? Levaquin (Levofloxacin) Hives ??? Sulfa (Sulfonamide Antibiotics) CIS - Hives ??? 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 Marital Status: Spouse Name: N/A Number of Children: N/A ??? Years of Education: N/A Occupational History ??? Not on file. Social History Main Topics ??? Smoking status: Not on file ??? Smokeless tobacco: Not on file ??? Alcohol Use: Not on file ??? Drug Use: Not on file ??? Sexually Active: Not on file Other Topics Concern ??? Not on file Social History Narrative ??? No narrative on file Immunizations: Physical Exam: Last Set of Vitals: BP 153/84 Pulse 86 Temp(Src) 36.8 ??C (98.2 ??F) (Oral) Resp 16 Ht 165.1 cm (5' 5) Wt 78.472 kg (173 lb) BMI 28.79 kg/m2 SpO2 100% LMP 01/27/2013 Physical Exam Focused Exam: Left Upper Extremity Painless range of motion shoulder and elbow. Pain in dorsum of hand/forearm with movement of index finger. No lymphadenopathy or lymphangitis. She does have some streaky redness on the upper arm, butunclear if this is related to her general diffuse rash over chest that she attributes to vicodin. Draining pustule over dorsal/radial aspect of left index finger, small oblique incision visible across area of small blister. Clear serous drainage. Small area of surrounding erythema and induration. Sensation intact to light touch in radial, median and ulnar distributions, though 2 point discrimination decreased throughout index finger. She reports secondary to block from earlier today. PROCEDURE: Finger was prepped and draped with betadine. A digital block was performed using 3cc of 1% lidocaine. The patient tolerated this well. A scalpal was used to incise the area over the swelling. A hemostat was used to spread the underlying tissues. Scissors were then used to unroof the area of devitalized skin. The wound was dressed with xeroform and gauze. The patient tolerated this well. Assessment: Claudia Franks is a 43 y.o. female with left index finger abscess drained by primary care provider.While she certainly is tender we are reassured that this does not appear to be flexor tenosynovitisor demand surgical intervention. We were able to unroof the blistering skin to allow the wound to drain more productively. We also asked Dr. Siegel from infectious disease to help us with antibiotic selection. After lengthy discussion we agreed to a trial of Ceftriaxone with doxycycline po and a plan for close follow-up with her primary care provider. She appeared to tolerate the Ceftriaxone well initially, but unfortunately appeared to develop a mild rash after the administration of doxycycline. Of course it is impossible to know for certain which medication caused the reaction, but it did respond well to benadryl. Given that the patient had already received both antibiotics and was feeling well at the time of myevaluation approximately an hour after the medication administration and there was no surgical indication the patient agreed to discharge to home with close follow-up with her PCP and us by phone tomorrow morning for further antibiotic recommendation. Recommendations: ?? Strict elevation of left upper extremity ?? Pain Control percocet, ibuprofen ?? Antibiotics Ceftriaxone and doxycycline given, further antibiosis to be determined tomorrow morning ?? Patient seen and discussed with Attending Staff, Dr. Rodriguez ?? Please call Becky Garnica on pager # [phone] with questions or concerns. ?? Attending awake overnight monitor: Dr. Rodriguez I have contacted the referring team and discussed our evaluation and recommendations as listed above. The orthopaedic service will continue to follow Claudia Franks. Thank you for the opportunity to assist in the evaluation and treatment of Claudia Franks. CLARITA GARNICA MD 02/05/2013 I examined Claudia Franks and I agree with Dr. Garnica's note. VASQUEZ RODRIGUEZ MD * ED Triage - Pema Ayers RN - 02/05/2013 2:48 PM EDT Pt had a paper cut on her left hand index finger 1.5 weeks ago,, was placed on keflex by her PCP, she returned today for PCP for f/u and was found to have left hand redness w/ streaking up her hand and forearm, pain increasing. Using vicodin and developing a rash on her chest and +itching. A&Ox3. Skin w/p/d. Dr Deepak Lechuga referred pt to Dr Rodriguez at [facility] for evaluation of tendon impairment/infection of her left index finger/hand. documented in this encounter Plan of Treatment Not on file documented as of this encounter Procedures Procedure Name Priority Date/Time Associated Diagnosis Comments POCT URINE DIPSTICK STAT 02/05/2013 3 :02 PM EDT documented in this encounter Results * POCT urine dipstick (02/05/2013 3:02 PM EDT) POC Sp Golden 1.015 1.002 - 1.030 POC pH, UA 6.0 5.0 - 8.5 POC Leuk, UA Neg Negative - Negative POC Nitrite, UA Neg Negative - Negative POC Protein, UA Neg Negative - Negative mg/dL POC Glucose, UA Norm Normal - Normal mg/dL POC Ketone, UA Neg Negative - Negative POC Urobil, UA 0.2 0.2 - 1.0 mg/dL POC Bili, UA Neg Negative - Negative POC Blood, UA Neg Negative - Negative aletha/uL Chirag Monahan MD POINT OF CARE TEST ORDERABLES documented in this encounter Visit Diagnoses Diagnosis Finger infection- Primary Unspecified local infection of skin and subcutaneous tissue Allergic reaction Allergy, unspecified not elsewhere classified documented in this encounter Administered Medications Inactive Administered Medications - up to 3 most recent administrations Medication Order MAR Action Action Date Dose Rate Site cefTRIaxone (ROCEPHIN) 1,000 mg in dextrose 5% 60 mL 1,000 mg (1 g), Intravenous, EVERY 24 HOURS SCHEDULED (Daily), First dose on Sun02/05/13 at 1700, Until Discontinued, Administer over 30 , Indication for (Active or Suspected): for Skin/Skin Structure Given 02/05/2013 4:50 PM EDT 1,000 mg diphenhydrAMINE (BENADRYL) capsule 50 mg 50 mg, Oral, ONCE, 1 dose, On Sun02/05/13 at 1830, STAT Given 02/05/2013 6:08 PM EDT 50 mg doxycycline (VIBRA-TABS) 100 mg tablet 1 dose, Starting on Sun02/05/13 at 1706, Until Sun02/05/13 at 1730, YVONNE BALL: cabinet override doxycycline (VIBRA-TABS) tablet 100 mg 100 mg, Oral, ONCE, 1 dose, On Sun02/05/13 at 1800, STAT, Indication for (Active or Suspected): for Skin/Skin Structure Given 02/05/2013 5:30 PM EDT 100 mg documented in this encounter Active and Recently Administered Medications Times are shown in EDT. Scheduled Medication Order 02/03/2013 02/04/2013 02/05/2013 cefTRIaxone (ROCEPHIN) 1,000 mg in dextrose 5% 60 mL (CANCELED) 1,000 mg (1 g), Intravenous, EVERY 24 HOURS SCHEDULED (Daily), First dose on Sun02/05/13 at 1700, Until Discontinued, Administer over 30 , Indication for (Active or Suspected): for Skin/Skin Structure 1650 (Given - Provid er: Yvonne Ball RN) diphenhydrAMINE (BENADRYL) capsule 50 mg (COMPLETED) 50 mg, Oral, ONCE, 1 dose, On Sun02/05/13 at 1830, STAT 1808 (Given - Provid er: Pema Aeyrs RN) doxycycline (VIBRA-TABS) tablet 100 mg (COMPLETED) 100 mg, Oral, ONCE, 1 dose, On Sun02/05/13 at 1800, STAT, Indication for (Active or Suspected): for Skin/Skin Structure 1730 (Given - Provid er: Yvonne Ball RN) doxycycline (VIBRA-TABS) tablet 100 mg 100 mg, Oral, EVERY 12 HOURS SCHEDULED (2 times per day), First dose on Sun02/05/13 at 2100, Until Discontinued, Routine, Indication for (Active or Suspected): for Skin/Skin Structure documented in this encounter Care Teams Principal Consulting Engineer Relationship Specialty Start Date End Date Deepak Lechuga MD [address] [address] PCP - General 10/18/10 documented as of this encounter
--- OUTSIDE RECORDS SUMMARY | 2024-09-19 06:07 | XMS_ITS | Encounter Summary ---
[place] [address] Care Team Providers Care Director Biology Name Role Phone Deepak Lechuga MD Primary Care Provider [phone] Encounter Details Date Type Department Care Team (Late st Contact Info) Description 02/24/2016 [place] [address] Conchis Beckham Social History Tobacco Use Types Packs/Day Years Used Date Smoking Tobacco: Former Cigarettes Q uit: 12/16/2004 Smokeless Tobacco: Never Sex and Gender Information Value Date Recorded Sex Assigned at Not on file Gender Identity Not on file Sexual Orientation Not on file documented as of this encounter Plan of Treatment Not on file documented as of this encounter Visit Diagnoses Not on filedocumented in this encounter Care Teams Director Biology Relationship Specialty Start Date End Date Deepak Lechuga MD [address] [place] [address] PCP - General 10/18/10 documented as of this encounter
--- OUTSIDE RECORDS SUMMARY | 2024-09-19 06:07 | XMS_ITS | Encounter Summary ---
Author Organization [facility] Address [address] [place] [address] Care Team Providers Care Contract Designer Name Role Phone Unknown, Provider Primary Care Provider [phone] Encounter Details Date Type Department Care Team (Late st Contact Info) Description 11/09/2020 Lab Requisition [facility] [place] Pathology & Laboratory Medicine - [facility] [address], [place] [id number] Outr Resulting Lab, Provider Social History Tobacco Use Types Packs/Day Years Used Date Smoking Tobacco: Never Assessed Sex and Gender Information Value Date Recorded Sex Assigned at Not on file Gender Identity Not on file Sexual Orientation Not on file documented as of this encounter Plan of Treatment Not on file documented as of this encounter Procedures Procedure Name Priority Date/Time Associated Diagnosis Comments DO NOT ORDER STANDALONE - BROAD COVID TEST Today 11/08/2020 14:30 EST COVID-19 TESTING Routine 11/08/2020 14:3 0 EST documented in this encounter Results * DO NOT ORDER STANDALONE - BROAD COVID TEST (11/08/2020 14:30 EST) COVID-19 rt-PCR Result NEGATIVE Negative 11/11/2020 19:09 EST [facility] Comment: 2019-novel Coronavirus (2019-nCoV) not detected by the qRT-PCR assay. Consider testing for other respiratory viruses or re-collecting for 2019-nCoV testing. Note: Optimum timing for peak viral levels during infections caused by 2019-nCoV have not been determined. Collection of multiple specimens from the same patient may be necessary to detect the virus. Limitations Positive results are indicative of active infection with SARS-CoV-2 but do not rule out bacterial infection or co-infection with other viruses. The agent detected may not be the definite cause of disease. In addition, detection of viral RNA may not indicate the presence of infectious virus or that SARS-CoV-2 is the causative agent for clinical symptoms. Negative results do not preclude SARS-CoV-2 infection and should not be used as the sole basis for patient management decisions. Negative results must be combined with clinical observations, patient history, and epidemiological information. False negative results may also occur if amplification inhibitors are present in the specimen or if inadequate numbers of organisms are present in the specimen. Optimum specimen types and timing for peak viral levels during infections caused by SARS-CoV-2 have not been fully determined. Collection of multiple specimens (types and time points) from the same patient may be necessary to detect the virus. The test was validated for use with upper respiratory specimens obtained via nasopharyngeal or oropharyngeal swabs in VTM, UTM, M4, M5, M6, saline, and MTM media. The performance of this test has not been established for other specimens. Specimens collected using other FDA recommended Specimen Collection Materials listed in the FDA COVID-19 [employer] communication (February 19, 2020) are processed with the caveat that they were not all validated for use with this test and the result must be interpreted in this context. Furthermore, a false negative results may occur if a specimen is improperly collected, transported or handled. If the virus mutates in the RT-PCR target region, SARS-CoV-2 may not be detected or may be detected less predictably. Inhibitors or other types of interference may produce a false negative result. An interference study evaluating the effect of common cold medications was not performed. This test is not FDA-cleared but its performance characteristics were established by our CLIA-certified, CAP-accredited, high complexity laboratory in accordance with CLIA regulations, [employer] [place] (CAP) guidelines (Feb 12, 2020), and FDA guidance (Jan 24, 2020). This test is only for use under the Food and Drug Administration's Emergency Use Authorization. Swab ENTIRE NASOPHARYNX / Unknown 11/08/2020 14:30 EST 11/09/2020 16:19 EST Provider Outr Resulting Lab MICROBIOLOGY - GENERAL ORDERABLES [facility] [place] * COVID-19 TESTING (11/08/2020 14:30 EST) COVID-19 rt-PCR Result NEGATIVE Negative 11/11/2020 21:31 EST [facility] Comment: 2019-novel Coronavirus (2019-nCoV) not detected by the qRT-PCR assay. Consider testing for other respiratory viruses or re-collecting for 2019-nCoV testing. Note: Optimum timing for peak viral levels during infections caused by 2019-nCoV have not been determined. Collection of multiple specimens from the same patient may be necessary to detect the virus. Limitations Positive results are indicative of active infection with SARS-CoV-2 but do not rule out bacterial infection or co-infection with other viruses. The agent detected may not be the definite cause of disease. In addition, detection of viral RNA may not indicate the presence of infectious virus or that SARS-CoV-2 is the causative agent for clinical symptoms. Negative results do not preclude SARS-CoV-2 infection and should not be used as the sole basis for patient management decisions. Negative results must be combined with clinical observations, patient history, and epidemiological information. False negative results may also occur if amplification inhibitors are present in the specimen or if inadequate numbers of organisms are present in the specimen. Optimum specimen types and timing for peak viral levels during infections caused by SARS-CoV-2 have not been fully determined. Collection of multiple specimens (types and time points) from the same patient may be necessary to detect the virus. The test was validated for use with upper respiratory specimens obtained via nasopharyngeal or oropharyngeal swabs in VTM, UTM, M4, M5, M6, saline, and MTM media. The performance of this test has not been established for other specimens. Specimens collected using other FDA recommended Specimen Collection Materials listed in the FDA COVID-19 [employer] communication (February 19, 2020) are processed with the caveat that they were not all validated for use with this test and the result must be interpreted in this context. Furthermore, a false negative results may occur if a specimen is improperly collected, transported or handled. If the virus mutates in the RT-PCR target region, SARS-CoV-2 may not be detected or may be detected less predictably. Inhibitors or other types of interference may produce a false negative result. An interference study evaluating the effect of common cold medications was not performed. This test is not FDA-cleared but its performance characteristics were established by our CLIA-certified, CAP-accredited, high complexity laboratory in accordance with CLIA regulations, [employer] [place] [employer] (CAP) guidelines (Feb 12, 2020), and FDA guidance (Jan 24, 2020). This test is only for use under the Food and Drug Administration's Emergency Use Authorization. Performing Lab [facility] 11/11/2020 21:31 EST [facility] Swab 11/08/2020 14:3 0 EST 11/09/2020 16:19 EST Provider Outr Resulting Lab MICROBIOLOGY - GENERAL ORDERABLES [facility] [address] [place], [place] [id number] [place] [address] [facility] documented in this encounter Visit Diagnoses Not on filedocumented in this encounter Care Teams Contract Designer Relationship Specialty Start Date End Date Unknown, Provider, PCP - General 04/20/15 documented as of this encounter
--- OUTSIDE RECORDS SUMMARY | 2024-09-19 06:07 | XMS_ITS | Encounter Summary ---
Author Organization [facility] [place] [place] [address] Care Team Providers Care Support Team Assoc Name Role Phone Deepak Lechuga MD Primary Care Provider [phone] Reason for Visit * Reason Onset Date Comments Medication Refill 04/04/2017 Encounter Details Date Type Department Care Team (Late st Contact Info) Description 04/04/2017 Refill [place] [address] Vincent Kimball MD [facility] [address] Social History Tobacco Use Types Packs/Day Years [...] on filedocumented in this encounter Care Teams Support Team Assoc Relationship Specialty Start Date End Date Deepak Lechuga MD [address] [place] [address] PCP - General 10/18/10 documented as of this encounter
--- OUTSIDE RECORDS SUMMARY | 2024-09-19 06:07 | XMS_ITS | Encounter Summary ---
Author [place] [address] Care Team Providers Care Sales Force Administrator Name Role Phone Deepak Lechuga MD Primary Care Provider [phone] Reason for Referral * Diagnostic Test (Routine) - Closed Specialty Diagnoses / Procedures Referred By Contac t Referred To Contact Radiology Diagnoses Midline thoracic back pain Procedures MRI Thoracic Spine Without Contrast [facility] [address] [place] [address] [place] [address] Referral ID Status Reason Start Date Expiration Date V isits Requested Visits Authorized [id number] Closed Specialty Service Requested 02/29/2016 04/28/2016 1 1 Reason for Visit * Diagnostic Test (Routine) - Closed Specialty Diagnoses / Procedures Referred By Contac t Referred To Contact Radiology Diagnoses Midline thoracic back pain Procedures MRI Thoracic Spine Without Contrast [facility] [address] [place] [address] [place] [address] Referral ID Status Reason Start Date Expiration Date V isits Requested Visits Authorized [id number] Closed Specialty Service Requested 02/29/2016 04/28/2016 1 1 Encounter Details Date Type Department Care Team (Latest Contact Info) Description 03/09/2016 4:21 PM EDT - 03/09/2016 11:59 PM EDT Hospital [place] [address] Jeff Juarez MD [facility] [place] [address] Midline thoracic back pain Discharge Disposition: Home Social History Tobacco Use Types Packs/Day Years Used Date Smoking Tobacco: Former Cigarettes Q uit: 12/16/2004 Smokeless Tobacco: Never Sex and Gender Information Value Date Recorded Sex Assigned at Not on file Gender Identity Not on file Sexual Orientation Not on file documented as of this encounter Medications at Time of Discharge Medication Sig Dispensed Refills Start Date End Date cyclobenzaprine (FLEXERIL) 10 mg Tablet Take 10 mg by mouth as needed. 11/29/2015 pantoprazole (PROTONIX) 40 mg tablet Take 40 mg by mouth as needed. ibuprofen (ADVIL;MOTRIN) 800 mg tablet Take 800 mg by mouth every 6 hours as needed. LORazepam (ATIVAN) 0.5 mg tablet Take 0.5 mg by mouth as needed. documented as of this encounter Plan of Treatment Not on file documented as of this encounter Procedures Procedure Name Priority Date/Time Associated Diagnosis Comments MRI THORACIC SPINE WITHOUT CONTRAST Routine 03/09/2016 5:12 PM EDT Midline thoracic back pain documented in this encounter Results * MRI Thoracic Spine Without Contrast (03/09/2016 5:12 PM EDT) Anatomical Region Laterality Modality T-spine Magnetic Resonan ce Impressions 03/09/2016 5:31 PM EDT IMPRESSION: Unhealed superior endplate compression fracture of T5. Narrative 03/09/2016 5:31 PM EDT EXAMINATION: MRI THORACIC SPINE WITHOUT CONTRAST CLINICAL HISTORY: back pain TECHNIQUE: MRI of the thoracic spine is performed without contrast, radiculopathy protocol COMPARISON: MRI thoracic spine 02/19/2014 FINDINGS: There is mild dextroscoliotic curvature of the spine centered at the thoracolumbar junction. ??There is a superior endplate deformity of T5 associated with mild marrow edema, which is new since the examination performed in January 2014. Similar appearance of hemangiomas within the superior T7 endplate and posterior T10 and T12 vertebral bodies. No focal disc protrusion. Mild facet arthropathy on the left at T1-2, T2-3 and T3-4. No significant canal stenosis or evidence for foraminal nerve root impingement. Paraspinal soft tissues are unremarkable. Procedure Note Michelle Maldonado MD - 03/09/2016 EXAMINATION: MRI THORACIC SPINE WITHOUT CONTRAST CLINICAL HISTORY: back pain TECHNIQUE: MRI of the thoracic spine is performed without contrast, radiculopathy protocol COMPARISON: MRI thoracic spine 02/19/2014 FINDINGS: There is mild dextroscoliotic curvature of the spine centered at the thoracolumbar junction. There is a superior endplate deformity of [id number] with mild marrow edema, which is new since the examination performed inJanuary 2014. Similar appearance of hemangiomas within the superior T7 endplateand posterior T10 and T12 vertebral bodies. No focal disc protrusion. Mildfacet arthropathy on the left at T1-2, T2-3 and T3-4. No significant canalstenosis or evidence for foraminal nerve root impingement. Paraspinal soft tissuesare unremarkable. IMPRESSION IMPRESSION: Unhealed superior endplate compression fracture of T5. Jeff Juarez MD IMG MRI ORDERABLES documented in this encounter Visit Diagnoses Diagnosis Midline thoracic back pain documented in this encounter Care Teams Sales Force Administrator Relationship Specialty Start Date End Date Deepak Lechuga MD [address] [address] PCP - General 10/18/10 documented as of this encounter
--- OUTSIDE RECORDS SUMMARY | 2024-09-19 06:07 | XMS_ITS | Encounter Summary ---
Author Organization [facility] Address [address] [place] [address] Care Team Providers Care Sample Room Supervisor Name Role Phone Unavailable Primary Care Provider Unavailabl e Encounter Details Date Type Department Care Team (Late st Contact Info) Description 04/15/2015 Results Only [facility] [phone] Smitha Mobley PA [address] [place] [address] Social History Tobacco Use Types Packs/Day Years Used Date Smoking Tobacco: Never Assessed Sex and Gender Information Value Date Recorded Sex Assigned at Not on file Gender Identity Not on file Sexual Orientation Not on file documented as of this encounter Plan of Treatment Not on file documented as of this encounter Procedures Procedure Name Priority Date/Time Associated Diagnosis Comments SURGICAL PATHOLOGY Routine 04/15/2015 8:52 EDT documented in this encounter Results * SURGICAL PATHOLOGY (04/15/2015 8:52 EDT) Pathology Report: SURGICAL PATHOLOGY REPORT Reports generated via electronic interface contain original data; however they are lacking the format of the original report. Caution should be taken when reading/interpreting unformatted reports. Name: ? CLAUDIA WEEMS ? Accession #: ? [id number] ? : ? 1970 (Age: 45) ??F ? Collect Date: ? 04/15/2015 ? Location: ? [facility] ? Receive Date: ? 04/15/2015 ? Provider: SMITHA SARGENT Copy to: ? Final Pathologic Diagnosis: SKIN OF THORAX, RIGHT POSTERIOR, PUNCH BIOPSY: - Melanocytic nevus, compound type, with unusual architectural features and moderate cytologic atypia. ??See microscopic and comment. - Melanocytic nevus does not extend to biopsy edges in the plane of the sections examined. ??- Lesion measures approximately 0.4 mm to the nearest peripheral edge. ??- Lesion measures at least 1.0 mm to the biopsy base. ?? Comment: This case has been reviewed by Dr. Gertrudis Givens, who concurs with the above diagnosis. ??(Dr. Whitlock)/lulu Microscopic Description: The epidermis is hyperplastic with elongate and anastomosing rete ridges. ??There is a compound proliferation of melanocytes with both epidermal and dermal components. ??The junctional melanocytes are arranged in nests and as individual cells. ??The nests predominate but vary to moderate degree in size, shape, and spacing. ??The nests are located between and the sides of rete ridges, in addition to at the tips of the ridges. ??Nests bridge rete ridges. ??Focally, individual melanocytes are prominent and unevenly spaced but show no confluent growth or well-developed upward migration. ??The melanocytes are enlarged and have ill-defined cytoplasm containing melanin pigment. ??The nuclei show a moderate degree of size and shape variation with occasional large, irregular forms. ??The dermal component consists of nests and cords of similar melanocytes that show airplane tester maturation with descent. ??There is papillary dermal fibroplasia. ??Arnold-1 (Melan-A) ALK PHOS (A103, [place]) does not show evidence of well developed confluent growth or upward migration. ??Deeper levels have been examined. ??(Dr. Whitlock)/maryn NOTE: ??One or more of the reagents used in immunohistochemical testing in this case may not have been cleared or approved by the U.S. Food and Drug Administration (FDA). ??The FDA has determined that such clearance or approval is not necessary. ??These tests are used for clinical purposes. ??They should not be regarded as investigational or for research. ??These reagents' performance characteristics have been determined by The . ??This laboratory is certified under the Clinical Laboratory Improvement Amendments of 1988 (CLIA-88) as qualified to perform high complexity clinical laboratory testing. ?? Document reviewed and electronically signed by: MARILU WHITLOCK MD Report ??Date: 04/22/2015 17:30 By the signature above, the attending physician certifies that he/she has personally conducted a gross and/or microscopic examination of the described specimens and rendered or confirmed the above diagnosis. Specimen(s) Received: Punch of 6.0 x 4.0 mm pigmented lesion R posterior thorax Clinical History: Pigmented lesion on middle/R posterior thorax Gross Description: ? Received in formalin labelled with proper patient identification (initials L, K) and R mid posterior thorax/mid back mole removal is a punch biopsy of whitten-white skin (0.8 cm in diameter and 0.5 cm in thickness). ??There is a central dark brown-dhaliwal macule with irregular borders that measures 0.6 x 0.4 cm. ??The margins are inked blue. ??Trisected and submitted in 1. Marilu Santizo 04/16/2015 9:40 AM End of Report [facility] 04/15/2015 8:52 EDT 04/15/2015 8:52 EDT Smitha SARGENT PATHOLOGY ORDERABLES [facility] [address] [place] [address] documented in this encounter Visit Diagnoses Not on filedocumented in this encounter
--- OUTSIDE RECORDS SUMMARY | 2024-09-19 06:07 | XMS_ITS | Clinical Summary ---
Author Organization [facility] Address [address] [place] [address] Care Team Providers Care Field Producer Name Role Phone Unknown, Provider Primary Care Provider Social History Tobacco Use Types Packs/Day Years Used Date Smoking Tobacco: Never Assessed Sex and Gender Information Value Date Recorded Sex Assigned at Not on file Gender Identity Not on file Sexual Orientation Not on file Plan of Treatment Health Maintenance Due Date Last Done Comments Hepatitis C Screen 1970 Hepatitis B Vaccine (1 of 3 - 19+ 3-dose series) 01/17 COVID-19 Vaccine ( season) 2023 Care Teams Field Producer Relationship Specialty Start Date End Date Unknown, Provider, PCP - General 04/20/15
--- OUTSIDE RECORDS SUMMARY | 2024-09-19 06:07 | XMS_ITS | Encounter Summary ---
Author Organization [facility] Address [address] [place] [address] Care Team Providers Care Doorperson Or Luggage Porter Name Role Phone Unknown, Provider Primary Care Provider [phone] Encounter Details Date Type Department Care Team (Late st Contact Info) Description 09/16/2015 Results Only [facility] [phone] Baron Luther MD [address] [place] [address] Social History Tobacco Use Types Packs/Day Years Used Date Smoking Tobacco: Never Assessed Sex and Gender Information Value Date Recorded Sex Assigned at Not on file Gender Identity Not on file Sexual Orientation Not on file documented as of this encounter Plan of Treatment Not on file documented as of this encounter Procedures Procedure Name Priority Date/Time Associated Diagnosis Comments SURGICAL PATHOLOGY Routine 09/16/2015 5:43 EDT documented in this encounter Results * SURGICAL PATHOLOGY (09/16/2015 5:43 EDT) Pathology Report: SURGICAL PATHOLOGY REPORT Reports generated via electronic interface contain original data; however they are lacking the format of the original report. Caution should be taken when reading/interpret ing unformatted reports. Name: ? CLAUDIA WEEMS ? Accession #: ? [id number] ? : ? 1970 (Age: 45) ??F ? Collect Date: ? 09/16/2015 ? Location: ? [facility] ? Receive Date: ? 09/18/2015 ? Provider: BARON LUTHER MD Copy to: ? Final Pathologic Diagnosis: ESOPHAGUS, GE JUNCTION, BIOPSY: - ??Squamocolumnar junctional mucosa with features consistent with mild reflux esophagitis. - ??Negative for intestinal metaplasia. Document reviewed and electronically signed by: UMA MILAN MD Report ??Date: 09/20/2015 16:16 By the signature above, the attending physician certifies that he/she has personally conducted a gross and/or microscopic examination of the described specimens and rendered or confirmed the above diagnosis. Specimen(s) Received: GE jx bx Clinical History: GE jx inflammation Gross Description: ? Received in formalin labelled with proper patient identification (initials L, K) and GE junction are three pink-whitten tissues (0.2 x 0.1 x 0.1 cm to 0.4 x 0.3 x 0.2 cm). Entirely submitted in 1. Mana Reed 09/18/2015 9:10 AM End of Report [facility] 09/16/2015 5:43 EDT 09/18/2015 5:43 EDT Baron Luther MD PATHOLOGY ORDERABL ES [facility] [address] [place] [address] documented in this encounter Visit Diagnoses Not on filedocumented in this encounter Care Teams Doorperson Or Luggage Porter Relationship Specialty Start Date End Date Unknown, Provider, PCP - General 04/20/15 documented as of this encounter
--- OUTSIDE RECORDS SUMMARY | 2024-09-19 06:07 | XMS_ITS | Encounter Summary ---
Author Organization [facility] [place] [address] Care Team Providers Care Cooler Man Name Role Phone Deepak Lechuga MD Primary Care Provider Encounter Details Date Type Department Care Team (Late st Contact Info) Description 02/19/2014 - 02/19/2014 11:59 PM EDT Hospital Encounter Radiology [facility] [place] [phone] [facility] Discharge Disposition: Home Social History Tobacco Use [...] 09/26/2005 12/16/2015 documented as of this encounter Plan of Treatment Not on file documented as of this encounter Procedures Procedure Name Priority Date/Time Associated Diagnosis Comments FILM LIBRARY STORAGE ONLY MR SPINE Routine 02/19/2014 12:00 AM EDT Pain documented in this encounter Results * Film Library- Storage only MR Spine (02/19/2014 12:00 AM EDT) Narrative [facility] - 12/13/2015 6:04 PM EST See PACS for result report. Dr [facility] FILM LIBRARY ORD ERABLES [place], [place] documented in this encounter Visit Diagnoses Diagnosis Pain Generalized pain documented in this encounter Care Teams Cooler Man Relationship Specialty Start Date End Date Deepak Lechuga MD [address] [place] [address] PCP - General 10/18/10 documented as of this encounter
--- OUTSIDE RECORDS SUMMARY | 2024-09-19 06:07 | XMS_ITS | Encounter Summary ---
[place] [address] Care Team Providers Care Process Machine Operator Name Role Phone Deepak Lechuga MD Primary Care Provider [phone] Reason for Referral * Diagnostic Test (Routine) - Closed Specialty Diagnoses / Procedures Referred By Erika garcias Referred To Contact Radiology Diagnoses Midline thoracic back pain Procedures MRI Thoracic Spine Without Contrast [facility] [place] [address] [place] [address] [facility] [place] [address] Referral ID Status Reason Start Date Expiration Date V isits Requested Visits Authorized [id number] Closed Specialty Service Requested 02/29/2016 04/28/2016 1 1 Reason for Visit * Reason Comments Back Pain Encounter Details Date Type Department Care Team (Late st Contact Info) Description 02/24/2016 11:00 AM EDT Office [place] [address] Sunday Auguste, PT [facility] [place] [address] Midline thoracic back pain Social History Tobacco Use Types Packs/Day Years Used Date Smoking Tobacco: Former Cigarettes Q uit: 12/16/2004 Smokeless Tobacco: Never Sex and Gender Information Value Date Recorded Sex Assigned at Not on file Gender Identity Not on file Sexual Orientation Not on file documented as of this encounter Progress Notes * Sunday Auguste, PT - 02/24/2016 10:52 AM EDT [facility] PHYSICAL THERAPY FOLLOW-UP Subjective: Utilized self care exercises as planned. Progressed extensor hold to 30 seconds at a time. Symptoms persist. Functional limitations persist. Objective testing: AROM? degrees? Forward bend standing? 80? Backward bend standing? 10?? Rotation right sitting? 10? Rotation left sitting? 10? Exercise testing: Checked extensor hold and prayer flexion form. Prayer flexion actually being performed in a way that allowed for thoracic extension. Compared quadruped flexion and extension, extension reported to be more comfortable. Tested prone PA's and UPA's, right UPA's most aggravating, no component helpful to relieve. Home exercise program: Reviewed exercise objectives and safety principles. The self care routine now consists of: Her pre-established routine. Agreed to discontinue recent strengthening trial. Assessment and Planning With 3 sessions of movement testing, we have not found any promising strategies to reduce symptoms or improve function. It would be reasonable at this point to explore treatment alternatives. Plan: New MRI per Dr. Juarez. No additional PT planned. Length of visit: A total of 25minutes was spent to test for potential self care exercise strategies. documented in this encounter Plan of Treatment Not on file documented as of this encounter Results * MRI Thoracic Spine [...] There is a superior endplate deformity of [id number] with mild marrow edema, which is new [...] Visit Diagnoses Diagnosis Midline thoracic back pain Midline thoracic back pain documented in this encounter Care Teams Process Machine Operator Relationship Specialty Start Date End Date Deepak Lechuga MD [address] [address] PCP - General 10/18/10 documented as of this encounter
--- OUTSIDE RECORDS SUMMARY | 2024-09-19 06:07 | XMS_ITS | Encounter Summary ---
[place] [address] Care Team Providers Care Receivable Manager Name Role Phone Deepak Lechuga MD Primary Care Provider Reason for Visit * Reason Comments Back Pain thoracic pain Encounter Details Date Type Department Care Team (Late st Contact Info) Description 04/20/2016 4:40 PM EDT Office [place] [phone] Jeff Juarez MD [facility] [place] [address] Chronic midline thoracic back pain Social History Tobacco Use Types Packs/Day Years Used Date Smoking Tobacco: Former Cigarettes Q uit: 12/16/2004 Smokeless Tobacco: Never Sex and Gender Information Value Date Recorded Sex Assigned at Not on file Gender Identity Not on file Sexual Orientation Not on file documented as of this encounter Last Filed Vital Signs Vital Sign Reading Time Taken Comments Blood Pressure 126/74 04/20/2016 4:37 PM EDT Pulse - - Temperature - - Respiratory Rate - - Oxygen Saturation - - Inhaled Oxygen Concentration - - Weight 75.3 kg (166 lb) 04/20/2016 4:37 PM EDT Height 165.1 cm (5' 5) 04/20/2016 4:37 PM EDT Body Mass Index 27.62 04/20/2016 4:37 PM EDT documented in this encounter Progress Notes * Jeff Juarez MD - 04/20/2016 5:07 PM EDT There is mild dextroscoliotic curvature of the spine centered at the thoracolumbar junction. There is a superior endplate deformity of T5 [...] nerve root impingement. Paraspinal soft tissues are Unremarkable. CHIEF COMPLAINT: Thoracic back pain. SUBJECTIVE: Unfortunately, she continues to have this midthoracic back pain approximately to the T8 level that she has had right along as previously reported, and this has not responded to mechanical diagnosis and treatment. She recalls that she has had a discussion with Dr. Thorne previously about medial branch block and radiofrequency ablation, but until now has not had insurance support to go forward with this. No new chest or abdominal symptoms. She is here to review her MRI with detailed findings as above and as discussed with her. An important part of this visit is recognizing that her pain really is down at the T8 or nine level, and does not seem to be related to this new finding of very subtle superior endplate deformation at T5. ASSESSMENT: This is a counseling-based visit for 15 of the 20-minute encounter talking about the frustration of not having a clear-cut anatomic diagnosis for this problem, or a response to mechanical care on an empirical basis, and the pros and cons of medial branch block and radiofrequency ablation. PLAN: She is going to consult with Dr. Thorne about this procedure again, as we have really not been able to identify a clear structural/surgical lesion and she has not responded to mechanical care. documented in this encounter Plan of Treatment Not on file documented as of this encounter Visit Diagnoses Diagnosis Chronic midline thoracic back pain documented in this encounter Care Teams Receivable Manager Relationship Specialty Start Date End Date Deepak Lechuga MD [address] [address] PCP - General 10/18/10 documented as of this encounter
--- OUTSIDE RECORDS SUMMARY | 2024-09-19 06:07 | XMS_ITS | Encounter Summary ---
Author Organization [facility] Address [address] [place] [address] Care Team Providers Care Dopeman Name Role Phone Unknown, Provider Primary Care Provider Encounter Details Date Type Department Care Team (Latest Contact Info) Description 09/16/2015 10:41 EDT - 09/16/2015 23:59 EDT Hospital Encounter [address] [address] Unknown, Provider, Discharge Disposition: Home or Self Care Social History Tobacco Use Types Packs/Day Years Used Date Smoking Tobacco: Never Assessed Sex and Gender Information Value Date Recorded Sex Assigned at Not on file Gender Identity Not on file Sexual Orientation Not on file documented as of this encounter Discharge Disposition Disposition Code Departure Means Destination Home or Self Detention documented in this encounter Plan of Treatment Not on file documented as of this encounter Visit Diagnoses Not on filedocumented in this encounter Care Teams Dopeman Relationship Specialty Start Date End Date Unknown, Provider, PCP - General 04/20/15 documented as of this encounter
--- OUTSIDE RECORDS SUMMARY | 2024-09-19 06:07 | XMS_ITS | Encounter Summary ---
Author Organization [facility] Address [address] [place] [address] Care Team Providers Care Speech Language Pathologist Prn Name Role Phone Unknown, Provider Primary Care Provider [phone] Encounter Details Date Type Department Care Team (Late st Contact Info) Description 02/03/2022 Lab Requisition [facility] Pathology & Laboratory Medicine - [facility] [address] [place] [address] Marija Weathers [address] [place] [address] [place] [address] Encounter for other general examination Social History Tobacco Use Types Packs/Day Years Used Date Smoking Tobacco: Never Assessed Sex and Gender Information Value Date Recorded Sex Assigned at Not on file Gender Identity Not on file Sexual Orientation Not on file documented as of this encounter Plan of Treatment Not on file documented as of this encounter Procedures Procedure Name Priority Date/Time Associated Diagnosis Comments PAP TEST Today 02/03/2022 8:30 EST Encounter for other general examination CHLAMYDIA/N. GONORRHOEAE AMPLIFIED NUCLEIC ACID, THINPREP Today 02/03/2022 8:30 EST HPV DNA DETECTION WITH GENOTYPING, PCR Today 02/03/2022 8:30 EST Encounter for other general examination documented in this encounter Results * HUMAN PAPILLOMAVIRUS (HPV) DETECTION-HIGH RISK TYPES (02/03/2022 8:30 EST) HPV other High Risk types, PCR Negative Negative 02/14/2022 7:28 EDT [facility] Comment:No E6 or E7 mRNA is detected from HPV types 16,18,31,33,35,39,45,51,52,56,58,59,66, and 68 by commodity industry analyst mediated amplification. Papanicolaou smear specimen (specimen) CERVIX UTERI STRUCTURE / Unknown 02/03/2022 8:30 EST 02/10/2022 17:36 EDT Marija Weathers MICROBIOLOGY - GENER AL ORDERABLES [facility] [address] [place] [address] * PAP TEST (02/03/2022 8:30 EST) Specimens A. Cervix and/or Endocervix , ThinPrep Imaging System with Manual Evaluation 02/14/2022 7:28 [facility] Specimen Adequacy Satisfactory for Evaluation - transformation zone component present 02/14/2022 7:28 [facility] General Categorization Negative for intraepithelial lesion or malignancy 02/14/2022 7:28 [facility] Descriptive Diagnosis Reactive cellular changes associated with inflammation present (includes repair). 02/14/2022 7:28 [facility] Attestation By the signature below, the attending physician certifies that they have personally conducted a gross and/or microscopic examination of the described specimens and rendered or confirmed the above diagnosis. 02/14/2022 7:28 [facility] at 0728 Clinical History See below 02/15/20 7:28 [facility] HPV The result for the Human Papillomavirus (HPV) Detection-High Risk Types is Negative. No E6 or E7 mRNA is detected from HPV types 16,18,31,33,35,39 ,45,51,52,56,58,5 9,66, and 68 by commodity industry analyst mediated amplification.Bessy ting was performed on specimen [id number] and was resulted on 02/14/2022 0718 EDT by JESUS, LAB INSTRUMENT RESULTS IN 02/14/2022 7:28 [facility] Performing Lab [facility] 02/14/2022 7:28 EDT [facility] Scanned Images 02/14/2022 7:28 EDT [facility] Papanicolaou smear specimen (specimen) CERVIX UTERI STRUCTURE / Unknown 02/03/2022 8:30 EST 02/06/2022 15:07 EDT Marija Weathers PATHOLOGY ORDERABLES Performing Organization Address City/[facility]/ZIP Co de Phone Number [facility] [address] [place] [address] * CHLAMYDIA/N. GONORRHOEAE AMPLIFIED RNA, THINPREP (02/03/2022 8:30 EST) Neisseria gonorrhoeae Result Negative Negative 02/07/2022 7:16 EDT [facility] Chlamydia trachomatis Result Negative Negative 02/07/2022 7:16 EDT [facility] Papanicolaou smear specimen (specimen) CERVIX UTERI STRUCTURE / Unknown 02/03/2022 8:30 EST 02/06/2022 7:24 EDT Marija Weathers MICROBIOLOGY - GENER AL ORDERABLES Performing Organization Address City/[facility]/ZIP Co de Phone Number [facility] [address] [place] [address] documented in this encounter Visit Diagnoses Diagnosis Encounter for other general examination documented in this encounter Care Teams Speech Language Pathologist Prn Relationship Specialty Start Date End Date Unknown, Provider, PCP - General 04/20/15 documented as of this encounter
--- OUTSIDE RECORDS SUMMARY | 2024-09-19 06:07 | XMS_ITS | Referral Summary ---
Author Organization [facility] Address [address] [place] [address] Care Team Providers Care Enterprise Account Manager Name Role Phone Unknown, Provider Primary Care Provider Social History Tobacco Use Types Packs/Day Years Used Date Smoking Tobacco: Never Assessed Sex and Gender Information Value Date Recorded Sex Assigned at Not on file Gender Identity Not on file Sexual Orientation Not on file Plan of Treatment Not on file Care Teams Enterprise Account Manager Relationship Specialty Start Date End Date Unknown, Provider, PCP - General 04/20/15
--- OUTSIDE RECORDS SUMMARY | 2024-09-19 06:07 | XMS_ITS | Clinical Summary ---
Author Organization [facility] [place] [address] Care Team Providers Care Hr Generalist Name Role Phone Deepak Lechuga MD Primary Care Provider Allergies Active Allergy Reactions Criticality Noted Date Comments Codeine Phosphate CIS - Nausea/Vomiting Erythromycin Base CIS - Hives Gabapentin Hives,Rash 12/16/2015 Levofloxacin Hives 02/05/2013 Penicillins High CIS - Anaphylaxis Sulfa (Sulfonamide Antibiotics) CIS - Hives Tetracyclines CIS - Rash Medications Medication Sig Dispensed Refills Start Date End Date Status pantoprazole (PROTONIX) 40 mg tablet Take 40 mg by mouth as needed. Active ibuprofen (ADVIL;MOTRIN) 800 mg tablet Take 800 mg by mouth every 6 hours as needed. Active LORazepam (ATIVAN) 0.5 mg tablet Take 0.5 mg by mouth as needed. Active cyclobenzaprine (FLEXERIL) 10 mg Tablet Take 10 mg by mouth as needed. 11/29/2015 Active traMADol (ULTRAM) 50 mg Tablet Take 50 mg by mouth 3 times daily as needed. 04/18/2016 Active Active Problems Problem Noted Date Diagnosed Date Midline thoracic back pain 12/16/2015 Social History Tobacco Use Types Packs/Day Years Used Date Smoking Tobacco: Former Cigarettes Q uit: 12/16/2004 Smokeless Tobacco: Never Sex and Gender Information Value Date Recorded Sex Assigned at Not on file Gender Identity Not on file Sexual Orientation Not on file Last Filed Vital Signs Vital Sign Reading Time Taken Comments Blood Pressure 126/74 04/20/2016 4:37 PM EDT Pulse 72 02/05/2013 5:49 PM EDT Temperature 37.2 ??C (99 ??F) 02/05/2013 5:49 PM EDT Respiratory Rate 15 02/05/2013 5:49 PM EDT Oxygen Saturation 100% 02/05/2013 5:49 PM EDT Inhaled Oxygen Concentration - - Weight 75.3 kg (166 lb) 04/20/2016 4:37 PM EDT Height 165.1 cm (5' 5) 04/20/2016 4:37 PM EDT Body Mass Index 27.62 04/20/2016 4:37 PM EDT Plan of Treatment Health Maintenance Due Date Last Done Comments CT Colonography 1972 Colonoscopy 1972 Colorectal Cancer Screening 1972 FIT DNA 1972 FIT 1972 Sigmoidoscopy (10 year) with FIT yearly 1972 Sigmoidoscopy 1972 HIV screen 1990 Hepatitis C Screening 1990 Hepatitis B vaccine (0-59 yrs) (1) 1991 Tetanus/Diphtheria/Pertussis Vaccines (1 - Tdap) 01/17 HPV test 2002 PAP Smear 2002 Breast Cancer Share Decision Needed 2012 Breast Cancer screening 2012 Zoster vaccine (1 of 2) 2022 Covid-19 Vaccine (1 - season) 2024 Influenza (Flu) vaccine (1 o f 1 - Influenza standard series) 07/27/2024 Care Teams Hr Generalist Relationship Specialty Start Date End Date Deepak Lechuga MD [address] [place] [id number] PCP - General 10/18/10
--- OUTSIDE RECORDS SUMMARY | 2024-09-19 06:07 | XMS_ITS | Encounter Summary ---
[place] [address] Care Team Providers Care Transit Mix Operator Name Role Phone Deepak Lechuga MD Primary Care Provider [phone] Reason for Visit * Reason Comments Back Pain Encounter Details Date Type Department Care Team (Late st Contact Info) Description 01/13/2016 3:00 PM EST Office [place] [phone] Sunday Auguste, PT [facility] [place] [address] Midline thoracic back pain Social History Tobacco Use Types Packs/Day Years Used Date Smoking Tobacco: Former Cigarettes Q uit: 12/16/2004 Smokeless Tobacco: Never Sex and Gender Information Value Date Recorded Sex Assigned at Not on file Gender Identity Not on file Sexual Orientation Not on file documented as of this encounter Progress Notes * uSnday Auguste, PT - 01/13/2016 3:04 PM EST [facility] PHYSICAL THERAPY FOLLOW-UP Subjective: Utilized self care exercises twice daily, performing both strategies together each session. Prayer flexion relieves pain while in the position but not much better as a result. No significant functional or symptomatic change overall. Objective testing: AROM?? degrees?? Forward bend standing?? 80?? Backward bend standing?? 5 Rotation right sitting?? 10?? Rotation left sitting?? 10? Assessment and Planning Exercise testing: Pre-test mild mid back pain standing. Sustained extensor hold off end of bed increased, not worse. Forward bend / lift with 3 pound weights increased, worse. Home exercise program: Reviewed exercise objectives and safety principles. The self care routine now consists of: Sustained extensor hold 5 (up to 20) seconds x 5 repetitions followed by prayer flexion strategies twice daily. No significant change thus far. One additional session is warranted to test the effectiveness of these revised exercise strategies. Knows to call the Spine Center with any questions or concerns. Plan: Recommend PT follow up in 4 weeks. Consider specific progressions versus contingency for new imaging. Length of visit: A total of 25 minutes was spent to test and develop appropriate self care exercisestrategies. documented in this encounter Plan of Treatment Not on file documented as of this encounter Visit Diagnoses Diagnosis Midline thoracic back pain documented in this encounter Care Teams Transit Mix Operator Relationship Specialty Start Date End Date Deepak Lechuga MD [address] [place] [address] PCP - General 10/18/10 documented as of this encounter
--- OUTSIDE RECORDS SUMMARY | 2024-09-19 06:07 | XMS_ITS | Encounter Summary ---
Author Organization [facility] Address [address] [place] [address] Care Team Providers Care Back Panel Padder Name Role Phone Unavailable Primary Care Provider Unavailabl e Encounter Details Date Type Department Care Team (Latest Contact Info) Description 04/15/2015 15:34 EDT - 04/15/2015 23:59 EDT Hospital Encounter [address] [address] Unknown, Provider, Discharge Disposition: Home or Self Care Social History Tobacco Use Types Packs/Day Years Used Date Smoking Tobacco: Never Assessed Sex and Gender Information Value Date Recorded Sex Assigned at Not on file Gender Identity Not on file Sexual Orientation Not on file documented as of this encounter Discharge Disposition Disposition Code Departure Means Destination Home or Self Group Home documented in this encounter Plan of Treatment Not on file documented as of this encounter Visit Diagnoses Not on filedocumented in this encounter
--- OUTSIDE RECORDS SUMMARY | 2024-09-19 06:07 | XMS_ITS | Encounter Summary ---
Author Organization [facility] Address [address] [place] [address] Care Team Providers Care Portfolio Management Marketing Name Role Phone Unknown, Provider Primary Care Provider [phone] Encounter Details Date Type Department Care Team (Late st Contact Info) Description 07/26/2021 Lab Requisition [facility] Pathology & Laboratory Medicine - [facility] [address] [place] [address] Outr Resulting Lab, Provider Social History Tobacco [...] Procedure Name Priority Date/Time Associated Diagnosis Comments ZZCOVID-19 TEST [facility] PCR Today 07/25/2021 10:20 EDT COVID-19 TESTING Routine 07/25/2021 10:2 0 EDT documented in this encounter Results * COVID-19 TEST [facility] PCR (07/25/2021 10:20 EDT) Swab ENTIRE NASOPHARYNX / Unknown 07/25/2021 10:20 EDT 07/26/2021 15:33 EDT Provider Outr Resulting Lab MICROBIOLOGY - GENERAL ORDERABLES [facility] [address] [place] [address] * COVID-19 TESTING (07/25/2021 10:20 EDT) COVID-19 rt-PCR Result Negative Negative 07/27/2021 16:43 EDT [facility] Comment: This test has not been FDA cleared or approved. This test has been authorized by FDA under an EUA for use by authorized laboratories. This test has been authorized only for detection of nucleic acid from 2019-nCoV, not for any other viruses or pathogens. This test is only authorized for the duration of the declaration that circumstances exist justifying the authorization of emergency use of in vitro diagnostic tests for detection and/or diagnosis of 2019-nCoV under section 564(b)(1) of Act, 21 U.S.C ?? 360bbb-3(b) (1), unless the authorization is terminated or revoked sooner. Negative results do not preclude 2019-nCoV infection and should not be used as the sole basis for treatment or other patient management decisions. Negative results must be combined with clinical observations, patient history, and epidemiological information. This test was developed and its performance characteristics determined by [facility]. It has not been cleared or approved by the US Food and Drug Administration. FDA does not require this test to go through premarket FDA review. This test is used for clinical purposes. It should not be regarded as investigational or for research. This laboratory is certified under the Clinical Laboratory Improvement Amendments (CLIA) as qualified to perform high complexity clinical laboratory testing. This test is based on the [facility] COVID-19 Emergency Use Authorization (EUA) assay, with minor modification as defined by the FDA Performed on the [employer] 7 Pro RT-PCR System. Performing Lab [facility] 07/27/2021 16:43 EDT [facility] Swab 07/25/2021 10:2 0 EDT 07/26/2021 15:33 EDT Provider Outr Resulting Lab MICROBIOLOGY - GENERAL ORDERABLES [facility] [address] [place] [address] documented in this encounter Visit Diagnoses Not on filedocumented in this encounter Care Teams Portfolio Management Marketing Relationship Specialty Start Date End Date Unknown, Provider, PCP - General 04/20/15 documented as of this encounter
--- OUTSIDE RECORDS SUMMARY | 2024-09-19 06:07 | XMS_ITS | Encounter Summary ---
Author Organization [facility] Address [address] [place] [address] Care Team Providers Care Back Hanger Name Role Phone Unavailable Primary Care Provider Unavailabl e Encounter Details Date Type Department Care Team (Late st Contact Info) Description 09/18/2013 Results Only [facility] [phone] Carl Perea, MIN [address] [place] [address] Social History Tobacco Use Types Packs/Day Years Used Date Smoking Tobacco: Never Assessed Sex and Gender Information Value Date Recorded Sex Assigned at Not on file Gender Identity Not on file Sexual Orientation Not on file documented as of this encounter Plan of Treatment Not on file documented as of this encounter Procedures Procedure Name Priority Date/Time Associated Diagnosis Comments PAP TEST- RESULT ONLY Routine 09/18/2013 0:00 EDT documented in this encounter Results * PAP TEST- RESULT ONLY (09/18/2013 0:00 EDT) Pathology Report: CYTOPATHOLOGY REPORT Reports generated via electronic interface contain original data; however they are lacking the format of the original report. Caution should be taken when reading/interpreti ng unformatted reports. Name: ? CLAUDIA WEEMS ? Accession #: ? [id number] ? : ? 1970 (Age: 43) ??F ?Collect Date: ? 09/18/2013 ? Location: ? [facility] ? Receive Date: ? 09/19/2013 ? Provider: CARL SARGENT Copy to: ? Final Report SPECIMEN ADEQUACY ? Satisfactory for Evaluation - transformation zone component present GENERAL CATEGORIZATION ? Other, see interpretation INTERPRETATION ? Endometrial cells present in a woman equal to or greater than age 40. Negative for Intraepithelial Lesion. EDUCATIONAL NOTES/RECOMMENDATI ONS ? Benign appearing endometrial cells on Pap tests are usually a normal finding in women with regular menstrual cycles, especially if the Pap test was collected during the first half of the menstrual cycle. There is data showing that endometrial cells on Pap tests may be associated with endometrial/uterin e abnormalities in post menopausal women or in perimenopausal women with abnormal bleeding. There is limited data on the significance of benign endometrial cells in post menopausal women on HRT. ??Clinical correlation is recommended. Note: ??The Pap test is not an accurate test for the screening of endometrial lesions and should not be used as a follow up in patients with clinical suspicion of endometrial pathology. Last Menstrual Period: 09/12/13 Specimen/Source: ??Pap Test, Cervix, ThinPrep Imaging System with manual evaluation Document reviewed and electronically signed by: ? MAGDA Qiu(ASCP) ? Report ??Date: 09/24/2013 13:03 HPV with Pap Test ? Date Ordered: ? 09/24/2013 ? Status: ?? Signed Out ?Date Complete: ? 09/26/2013 ? By: ??System Interface ? Date Reported: ? 09/26/2013 ? Interpretation RESULT: Negative for HPV. No E6 or E7 mRNA is detected from HPV types 16,18,31,33,35, 39,45,51,52,56,58, 59,66, and 68 by satellite technician mediated amplification. Comments Document reviewed and electronically signed by: ? System Interface ? Report date: 09/26/2013 By the signature above, the attending physician certifies that he/she has personally conducted a gross and/or microscopic examination of the described specimens and rendered or confirmed the above diagnosis. End of Report [facility] 09/18/2013 09/19/2013 Carl Perea PA-C PATHOLOGY ORDERABLES RICKY LOCKETT [address] [place] [address] documented in this encounter Visit Diagnoses Not on filedocumented in this encounter
--- OUTSIDE RECORDS SUMMARY | 2024-09-19 06:07 | XMS_ITS | Encounter Summary ---
Author Organization [facility] Address [address] [place] [address] Care Team Providers Care Torque Tester Name Role Phone Unknown, Provider Primary Care Provider [phone] Encounter Details Date Type Department Care Team (Late st Contact Info) Description 05/06/2020 Lab Requisition [facility] Pathology & Laboratory Medicine - [facility] [address], [place] [id number] Outr Resulting Lab, Provider Social History Tobacco [...] ORDER STANDALONE - BROAD COVID TEST Today 05/06/2020 8:00 EDT COVID-19 TESTING Routine 05/06/2020 8:00 EDT documented in this encounter Results * DO NOT ORDER STANDALONE - BROAD COVID TEST (05/06/2020 8:00 EDT) COVID-19 rt-PCR Result NEGATIVE Negative 05/07/2020 19:18 EDT [facility] Comment: 2019-novel Coronavirus (2019-nCoV) not [...] in accordance with CLIA regulations, College of [employer] (CAP) guidelines (Feb 12, 2020), and FDA guidance (Jan 24, 2020). This test is only for use under the Food and Drug Administration's Emergency Use Authorization. Swab ENTIRE NASOPHARYNX / Unknown 05/06/2020 8:00 EDT 05/06/2020 16:00 EDT Provider Outr Resulting Lab MICROBIOLOGY - GENERAL ORDERABLES [facility] [place], [place] * COVID-19 TESTING (05/06/2020 8:00 EDT) COVID-19 rt-PCR Result NEGATIVE Negative 05/07/2020 23:53 EDT [facility] Comment: 2019-novel Coronavirus (2019-nCoV) not detected [...] in accordance with CLIA regulations, College of [employer] [employer]ologists (CAP) guidelines (Feb 12, 2020), and FDA guidance (Jan 24, 2020). This test is only for use under the Food and Drug Administration's Emergency Use Authorization. Performing Lab [facility] 05/07/2020 23:53 EDT [facility] Swab 05/06/2020 8:00 EDT 05/06/2020 16:00 EDT Provider Outr Resulting Lab MICROBIOLOGY - GENERAL ORDERABLES [facility] [address] [place], [place] [id number] [place] [address] LABORATORY [place], [place] documented in this encounter Visit Diagnoses Not on filedocumented in this encounter Care Teams Torque Tester Relationship Specialty Start Date End Date Unknown, Provider, PCP - General 04/20/15 documented as of this encounter
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
--- OUTSIDE RECORDS SUMMARY | 2024-09-19 06:07 | XMS_ITS | Encounter Summary ---
Author Organization [facility] Address [address] [place] [address] Care Team Providers Care Research Program Coordinator Name Role Phone Unknown, Provider Primary Care Provider [phone] Encounter Details Date Type Department Care Team (Late st Contact Info) Description 07/13/2017 Results Only [facility] [phone] Haydee Welch, [employer] [address] [place] [id number] Social History Tobacco Use Types Packs/Day Years [...] Diagnosis Comments PAP TEST- RESULT ONLY Routine 07/13/2017 0:00 EDT documented in this encounter Results * PAP TEST- RESULT ONLY (07/13/2017 0:00 EDT) Pathology Report: CYTOPATHOLOGY REPORT Reports generated via electronic interface contain original data; however they are lacking the format of the original report. Caution should be taken when reading/interpreti ng unformatted reports. Name: ? CLAUDIA WEEMS ? Accession #: ? [id number] ? : ? 1970 (Age: 47) ??F ?Collect Date: ? 07/13/2017 ? Location: ? [facility] ? Receive Date: ? 07/16/2017 ? Provider: HAYDEE WELCH NP Copy to: ? Final Report SPECIMEN ADEQUACY ? Satisfactory for Evaluation - transformation zone component present GENERAL CATEGORIZATION ? Negative for Intraepithelial Lesion or Malignancy ?? Specimen/Source: ??Pap Test, Cervix, ThinPrep Imaging System with manual evaluation Document reviewed and electronically signed by: ? Mireille Gutiérrez, CT(ASCP) ? Report ??Date: 07/23/2017 14:33 HPV with Pap Test ? Date Ordered: ? 07/23/2017 ? Status: ?? Signed Out ?Date Complete: ? 07/24/2017 ? By: ??System Interface ? Date Reported: ? 07/24/2017 ? Interpretation RESULT: Negative for HPV. No E6 or E7 mRNA is detected from HPV types 16,18,31,33,35, 39,45,51,52,56,58, 59,66, and 68 by pipe processor mediated amplification. Comments Document reviewed and electronically signed by: ? System Interface ? Report date: 07/24/2017 By the signature above, the attending physician certifies that he/she has personally conducted a gross and/or microscopic examination of the described specimens and rendered or confirmed the above diagnosis. End of Report [facility] 07/13/2017 07/16/2017 Haydee Welch NP PATHOLOGY ORDERABLES [facility] [address] [place] [address] documented in this encounter Visit Diagnoses Not on filedocumented in this encounter Care Teams Research Program Coordinator Relationship Specialty Start Date End Date Unknown, Provider, PCP - General 04/20/15 documented as of this encounter
--- OUTSIDE RECORDS SUMMARY | 2024-09-19 06:08 | XMS_ITS | Encounter Summary ---
Author Organization [facility] Address [address] [place] [address] Care Team Providers Care Optomechanical Engineer Name Role Phone Unavailable Primary Care Provider Unavailabl e Encounter Details Date Type Department Care Team (Late st Contact Info) Description 12/04/2003 Results Only [facility] - Map conversion [address] [place] [address] Jeanine Nava, [facility] [address] [place] [address] [place] [address] Social History Tobacco Use Types Packs/Day Years Used Date Smoking Tobacco: Never Assessed Sex and Gender Information Value Date Recorded Sex Assigned at Not on file Gender Identity Not on file Sexual Orientation Not on file documented as of this encounter Plan of Treatment Not on file documented as of this encounter Procedures Procedure Name Priority Date/Time Associated Diagnosis Comments CYTOPATHOLOGY Routine 12/04/2003 0:00 EST documented in this encounter Results * CYTOPATHOLOGY (12/04/2003 0:00 EST) Pathology Report: CYTOPATHOLOGY REPORT Reports generated via electronic interface contain original data; however they are lacking the format of the original report. Caution should be taken when reading/interpreti ng unformatted reports. Name: ? CLAUDIA WEEMS ? Accession #: ? [id number] : ? 1970 (Age: 33) ??F ?Collect Date: ? 12/04/2003 Location: ? [facility] ? Receive Date: ? 12/09/2003 Provider: ?JEANINE NAVA POLYSTYRENE BEAD MOLDER Copy to: ? Specimen/Source: ?ThinPrep Pap Test, Cervix/Endocervix Last Menstrual Period: ? 11/18/03 ? SPECIMEN ADEQUACY ? Satisfactory for Evaluation - transformation zone component present GENERAL CATEGORIZATION ? Negative for Intraepithelial Lesion or Malignancy ? Document reviewed and electronically signed by: ? MAGDA Das(ASCP) ? Report Date: ??12/14/2003 09:59 End of Report RICKY LOCKETT 12/04/2003 12/09/2003 Jeanine Nava POLYSTYRENE BEAD MOLDER PATHOLOGY ORDERABLES RICKY LOCKETT [address] [place] [address] documented in this encounter Visit Diagnoses Not on filedocumented in this encounter
--- OUTSIDE RECORDS SUMMARY | 2024-09-19 06:08 | XMS_ITS | Encounter Summary ---
Author Organization [facility] Address [address] [place] [address] Care Team Providers Care Per Diem Rn Name Role Phone Unavailable Primary Care Provider Unavailabl e Encounter Details Date Type Department Care Team (Late st Contact Info) Description 11/21/2002 Results Only [facility] [place] conversion [address] [place] [address] Jeanine Nava, [facility] [address] [place] [address] [place] [address] Social History Tobacco Use Types [...] Priority Date/Time Associated Diagnosis Comments CYTOPATHOLOGY Routine 11/21/2002 0:00 EST documented in this encounter Results * CYTOPATHOLOGY (11/21/2002 0:00 EST) Pathology Report: CYTOPATHOLOGY REPORT Reports generated via electronic interface contain original data; however they are lacking the format of the original report. Caution should be taken when reading/interpreti ng unformatted reports. Name: ? CLAUDIA WEEMS ? Accession #: ? [id number] : ? 1970 (Age: 32) ??F ?Collect Date: ? 11/21/2002 Location: ? [facility] ? Receive Date: ? 11/25/2002 Provider: ?JEANINE NAVA FLYING SQUAD WORKER Copy to: ? Specimen/Source: ?ThinPrep Pap Test, Cervix Last Menstrual Period: ? 11/14/02 ? SPECIMEN ADEQUACY ? Satisfactory for Evaluation - transformation zone component present GENERAL CATEGORIZATION ? Negative for Intraepithelial Lesion or Malignancy ? Document reviewed and electronically signed by: ? MAGDA Varela(ASCP) ? Report Date: ??11/27/2002 10:51 End of Report RICKY LOCKETT 11/21/2002 11/25/2002 Jeanine Nava FLYING SQUAD WORKER PATHOLOGY ORDERABLES RICKY LOCKETT [address] [place] [address] documented in this encounter Visit Diagnoses Not on filedocumented in this encounter
--- OUTSIDE RECORDS SUMMARY | 2024-09-19 06:08 | XMS_ITS | Encounter Summary ---
Author Organization [facility] Address [address] [place] [address] Care Team Providers Care Hand Sample Maker Name Role Phone Unavailable Primary Care Provider Unavailabl e Encounter Details Date Type Department Care Team (Late st Contact Info) Description 12/16/2007 Results Only [facility] - Map conversion [address] [place] [address] Jeanine Nava, [facility] [address] [place] [address] [place] [address] Social History Tobacco Use Types [...] Priority Date/Time Associated Diagnosis Comments CYTOPATHOLOGY Routine 12/16/2007 0:00 EST documented in this encounter Results * CYTOPATHOLOGY (12/16/2007 0:00 EST) Pathology Report: CYTOPATHOLOGY REPORT Reports generated via electronic interface contain original data; however they are lacking the format of the original report. Caution should be taken when reading/interpreti ng unformatted reports. Name: ? CLAUDIA WEEMS ? Accession #: ? [id number] : ? 1970 (Age: 37) ??F ?Collect Date: ? 12/16/2007 Location: ? [facility] ? Receive Date: ? 12/17/2007 Provider: ?JEANINE NAVA WHEELMAN Copy to: ? Specimen/Source: ?ThinPrep Pap Test, Cervix/Endocervix, processed on Scope 5 ThinPrep Imaging System, with manual evaluation Last Menstrual Period: ? 11-25-07 Other: ? HPVA - HPV testing requested if ASC-US on the current ThinPrep Pap test. ? SPECIMEN ADEQUACY ? Satisfactory for Evaluation - transformation zone component present GENERAL CATEGORIZATION ? Negative for Intraepithelial Lesion or Malignancy ? Document reviewed and electronically signed by: ? Gaviota Figueroa, MAGDA(ASCP)(IAC) ? Report Date: ??12/20/2007 10:36 End of Report RICKY LOCKETT 12/16/2007 12/17/2007 Jeanine Nava WHEELMAN PATHOLOGY ORDERABLES Performing Organization Address City/State/[facility] Co de Phone Number RICKY LOCKETT [address] [place] [address] documented in this encounter Visit Diagnoses Not on filedocumented in this encounter
--- OUTSIDE RECORDS SUMMARY | 2024-09-19 06:08 | XMS_ITS | Encounter Summary ---
Author Organization [facility] Address [address] [place] [address] Care Team Providers Care Jig Boring Machine Set Up Operator Name Role Phone Unavailable Primary Care Provider Unavailabl e Encounter Details Date Type Department Care Team (Late st Contact Info) Description 03/11/2009 Orders Only [facility] - [facility] ([facility] [address] [place] [address] Jeanine Nava, [facility] [address] [place] [address] [place] [address] Social History Tobacco Use Types [...] Priority Date/Time Associated Diagnosis Comments CYTOPATHOLOGY Routine 03/11/2009 0:00 EDT documented in this encounter Results * CYTOPATHOLOGY (03/11/2009 0:00 EDT) Pathology Report: CYTOPATHOLOGY REPORT ? Reports generated via electronic interface contain original data; ? however they are lacking the format of the original report. ? Caution should be taken when reading/interpreti ng unformatted reports. ? Name: ? CLAUDIA WEEMS ? Accession #: ? [id number] ? : ? 1970 (Age: 39) ??F ?Collect Date: ? 03/11/2009 ? Location: ? [facility] ? Receive Date: ? 03/15/2009 ? Provider: ?JEANINE BETZAIDA NEWS EDITOR ? Copy to: ? Specimen/Source: ?Pap Test, Cervix/Endocervix, ThinPrep Imaging System ? with manual evaluation ? Last Menstrual Period: ? 4/4/09 ? Other: ? HPVA - HPV testing requested if ASC-US on the current ThinPrep Pap test. ? SPECIMEN ADEQUACY ? Satisfactory for Evaluation ? - transformation zone component present ? GENERAL CATEGORIZATION ? Negative for Intraepithelial Lesion or Malignancy ? Document reviewed and electronically signed by: ? Conchis [place],CT(ASCP) ? Report Date: ??03/18/2009 11:38 ? End of Report ? RICKY LOCKETT 03/11/2009 03/15/2009 Jeanine Nava NEWS EDITOR PATHOLOGY ORDERABLES Performing Organization Address City/State/[place] Co de Phone Number RICKY LOCKETT [address] [place] [address] documented in this encounter Visit Diagnoses Not on filedocumented in this encounter
--- OUTSIDE RECORDS SUMMARY | 2024-09-19 06:08 | XMS_ITS | Encounter Summary ---
Author Organization [facility] Address [address] [place] [address] Care Team Providers Care Marine Service Manager Name Role Phone Unavailable Primary Care Provider Unavailabl e Encounter Details Date Type Department Care Team (Late st Contact Info) Description 04/18/2006 Results Only [facility] conversion [address] [place] [address] Eugenia Lackey [place], [place] [id number] Social History Tobacco Use Types Packs/Day Years Used Date Smoking Tobacco: Never Assessed Sex and Gender Information Value Date Recorded Sex Assigned at Not on file Gender Identity Not on file Sexual Orientation Not on file documented as of this encounter Plan of Treatment Not on file documented as of this encounter Procedures Procedure Name Priority Date/Time Associated Diagnosis Comments CYTOPATHOLOGY Routine 04/18/2006 0:00 EDT documented in this encounter Results * CYTOPATHOLOGY (04/18/2006 0:00 EDT) Pathology Report: CYTOPATHOLOGY REPORT Reports generated via electronic interface contain original data; however they are lacking the format of the original report. Caution should be taken when reading/interpreti ng unformatted reports. Name: ? CLAUDIA WEEMS ? Accession #: ? [id number] : ? 1970 (Age: 36) ??F ?Collect Date: ? 04/18/2006 Location: ? [facility] ? Receive Date: ? 04/19/2006 Provider: ?EUGENIA LACKEY CNM Copy to: ? Specimen/Source: ?ThinPrep Pap Test, Cervix/Endocervix, processed on XZERES ThinPrep Imaging System, with manual evaluation Last Menstrual Period: ? 02/20/06 Menstrual/Pregnanc y Status: ? Other: ? HPVA - HPV testing requested if ASC-US on the current ThinPrep Pap test. ? SPECIMEN ADEQUACY ? Satisfactory for Evaluation - transformation zone component present GENERAL CATEGORIZATION ? Negative for Intraepithelial Lesion or Malignancy ? Document reviewed and electronically signed by: ? MAGDA Varela(ASCP) ? Report Date: ??04/24/2006 11:10 End of Report RICKY LOCKETT 04/18/2006 04/19/2006 Eugenia Lackey CNM PATHOLOGY ORDERABLES Performing Organization Address City/State/[facility] Co de Phone Number [facility] [address] [place] [address] documented in this encounter Visit Diagnoses Not on filedocumented in this encounter
--- OUTSIDE RECORDS SUMMARY | 2024-09-19 06:08 | XMS_ITS | Encounter Summary ---
Author Organization [facility] Address [address] [place] [address] Care Team Providers Care Cheese Blender Name Role Phone Unavailable Primary Care Provider Unavailabl e Encounter Details Date Type Department Care Team (Late st Contact Info) Description 04/28/2010 Results Only [facility] Laboratory Services - [facility] ([facility]) [address], [place] [id number] Jeanine Nava, [facility] [address] [place] [address] [place] [address] Social History Tobacco Use Types Packs/Day Years Used Date Smoking Tobacco: Never Assessed Sex and Gender Information Value Date Recorded Sex Assigned at Not on file Gender Identity Not on file Sexual Orientation Not on file documented as of this encounter Plan of Treatment Not on file documented as of this encounter Procedures Procedure Name Priority Date/Time Associated Diagnosis Comments HPV DETECTION, HIGH RISK TYPES Routine 04/28/2010 9:59 EDT CYTOPATHOLOGY Routine 04/28/2010 0:00 EDT documented in this encounter Results * HUMAN PAPILLOMA VIRUS DNA TEST (04/28/2010 9:59 EDT) Specimen Description Cervix, ThinPrep vial [facility] Result Negative for HPV types 16, 18, 31, 33, 35, 39, 45, 51, 52, 56, 58, 59, and 68. [facility] Report Status Final 05/05/2010 [facility] 04/28/2010 9:59 EDT 05/04/2010 9:59 EDT Jeanine Nava MANAGER REAL ESTATE MICROBIOLOGY - GENER AL ORDERABLES [facility] [address] [place] [address] * CYTOPATHOLOGY (04/28/2010 0:00 EDT) Pathology Report: CYTOPATHOLOGY REPORT ? Reports generated via electronic interface contain original data; ? however they are lacking the format of the original report. ? Caution should be taken when reading/interpreti ng unformatted reports. ? Name: ? CLAUDIA WEEMS ? Accession #: ? [id number] ? : ? 1970 (Age: 40) ??F ?Collect Date: ? 04/28/2010 ? Location: ? [facility] ? Receive Date: ? 04/29/2010 ? Provider: ?JEANINE BETZAIDA MANAGER REAL ESTATE ? Copy to: ? Specimen/Source: ?Pap Test, Cervix/Endocervix, ThinPrep Imaging System ? with manual evaluation ? Last Menstrual Period: ? 5/25/10 ? Other: ? Additional clinical information: last pap 4/16/09 neg ? HPVDX - HPV testing requested regardless of diagnosis on current ThinPrep Pap ?? test. ? SPECIMEN ADEQUACY ? Satisfactory for Evaluation ? - transformation zone component present ? GENERAL CATEGORIZATION ? Negative for Intraepithelial Lesion or Malignancy ? Document reviewed and electronically signed by: ? Gaviota Figueroa, CT(ASCP)(IAC) ? Report Date: ??05/03/2010 13:03 ? End of Report ? [facility] 04/28/2010 04/29/2010 Jeanine Nava MANAGER REAL ESTATE PATHOLOGY ORDERABLES [facility] [address] [place] [address] documented in this encounter Visit Diagnoses Not on filedocumented in this encounter
--- NOTE | 2024-09-19 06:24 | W.ANESPRE ---
General Info Date of Service Date Performed: 09/19/24 Height: 5 ft 5 in Weight: 77.564 kg Body Mass Index (BMI): 28.4 Surgical Procedure: Operation Date: 09/19/24 07:50 Proposed Procedure Side Surgeon p Elbow Arthroscopy w/Debridement Lateral Epicondylitis Left Gurjit Lopez MD Meds Allergies and Home Medications Allergies Allergy/AdvReac Type Severity Reaction Status Date / Time amoxicillin Allergy Severe Anaphylaxis Verified 09/19/24 06:22 penicillin G Allergy Severe Anaphylaxsi Verified 09/19/24 06:22 s doxycycline Allergy Intermediate Skin Rash Verified 09/19/24 06:22 erythromycin base Allergy Intermediate Hives Verified 09/19/24 06:22 gabapentin Allergy Intermediate Skin Rash Verified 09/19/24 06:22 levofloxacin (From Levaquin) Allergy Intermediate Cardiac Verified 09/19/24 06:22 Dysrhythmia Sulfa (Sulfonamide Allergy Intermediate Hives Verified 09/19/24 06:22 Antibiotics) Tetracyclines Allergy Intermediate Skin Rash Verified 09/19/24 06:22 sulfadiazine Allergy Hives Verified 09/19/24 06:22 codeine AdvReac Intermediate Nausea Verified 09/19/24 06:22 azithromycin AdvReac Mild Hives Verified 09/19/24 06:22 Home Medication ?Medication ?Instructions ?Recorded ibuprofen 800 mg tablet 800 mg PO TID PRN PRN 09/22/16 bupropion HCl 150 mg tablet,12 hr 150 mg PO BID 09/28/21 sustained-release (Wellbutrin SR) tramadol 300 mg capsule 24 300 mg PO DAILY PRN 10/25/21 hr,extended release semaglutide 1 mg/dose (4 mg/3 mL) 1 mg subcut QWEEK 12/28/23 subcutaneous pen injector (Ozempic) cyclobenzaprine 10 mg tablet 10 mg PO HS PRN 02/27/24 esomeprazole magnesium 20 mg 20 mg PO DAILY 09/19/24 capsule,delayed release Current Visit Medications: Current Medications Generic Name Dose Route Start Last Admin Trade Name Freq PRN Reason Stop Dose Admin Ringer's Solution 1,000 mls @ 30 mls/hr 09/19/24 06:00 IV 09/19/24 23:59 INFUSION RONEL Cefazolin Sodium/Dextrose 2 gm in 50 mls @ 100 mls/hr 09/19/24 06:00 Ancef Duplex IVPB 09/19/24 23:59 PREOP RONEL Tranexamic Acid/Sodium Chloride 1,000 mg in 100 mls @ 600 mls/hr 09/19/24 06:00 IVPB 09/19/24 23:59 PREOP RONEL IV Miscellaneous Supplies 1 each 09/19/24 06:00 Iv Access IV 09/19/24 23:59 DIRECTED RONEL Sodium Chloride 0 ml 09/19/24 06:00 Normal Saline Flush 10 Ml Syr IV 09/19/24 23:59 PRN PRN Sodium Chloride 0 ml 09/19/24 06:00 Normal Saline 10 Ml Vial IJ 09/19/24 23:59 DIRECTED PRN Sterile Water 0 ml 09/19/24 06:00 Water,Injection,Sterile 10 Ml Vial IJ 09/19/24 23:59 DIRECTED PRN PFSH Active Problems Active Problems: Problem Status Onset Code Lateral epicondylitis, left elbow Acute M77.12 Microscopic hematuria Acute R31.29 Thoracic spondylosis without myelopathy Chronic M47.814 Menorrhagia Acute N92.0 Arthritis of right acromioclavicular joint Acute M19.011 Bursitis of right shoulder Acute M75.51 Right rotator cuff tendonitis Acute M75.81 Biceps tendinitis of right shoulder Acute M75.21 Medical History Medical History (Updated 09/19/24 @ 06:29 by Yisel Lundy) delivery delivered Depression HTN (hypertension) GERD (gastroesophageal reflux disease) Hemangioma of vertebral body Varicose vein of leg Heart palpitations per pt. does not have Scoliosis Surgical History Surgical History (Updated 09/19/24 @ 06:29 by Yisel Lundy) History of tonsillectomy H/O arthroscopy of shoulder right; [facility] Tobacco Smoking/Tobacco Use Status: Former Tobacco Use Alcohol Alcohol Intake: current Alcohol intake frequency: holidays/special occasions only Substance Use Substance use: Never Substance use type: does not use Vital Signs and Lab Results Vital Signs Comment Vital Signs Comment:: Temp Pulse Resp BP Pulse Ox 36.3 C L 79 16 124/71 99 09/19/24 06:15 09/19/24 06:15 09/19/24 06:15 09/19/24 06:15 09/19/24 06:15 Point of Care Results Point of Care Results: POC- Test(urine) Negative 09/19/24 07:01 Lab Results Blood Type / Crossmatch: No Data to Display Complete Blood Count: No Data to Display Complete Metabolic Panel: No Data to Display Liver Function Panel: No Data to Display Coagulation Panel: No Data to Display Cardiac Panel: No Data to Display Arterial Blood Gas: No Data to Display Venous Blood Gas: No Data to Display Pancreas Panel: No Data to Display Thyroid Panel: No Data to Display Infectious Disease: No Data to Display Blood Cultures: No Data to Display Toxicology Panel: No Data to Display Panel: No Data to Display Anesthesia Assessment and Plan Anesthesia History Personal History: No History of Anesthesia Complications Family History: No Family History of Anesthesia Complications Exercise Tolerance Exercise Tolerance: Metabolic Equivalents>4 Pertinent Negatives Pertinent Negatives: No Symptoms of GERD (chronic GERD since starting Ozempic, denies symptoms DOS ), No Major Cardiovascular Symptoms or Complaints, No Major Pulmonary Symptoms or Complaints and No History of CVA/TIA Cardiac & Pulmonary Exam Cardiac Exam: Normal S1/S2 Heart Sounds Pulmonary Exam: Clear Bilateral Breath Sounds Implantable Cardiac Device Does patient have a Pacemaker or an ICD?: No Airway Exam Known Difficult Airway: No Mallampati Class: 3 Mouth Opening: Normal (> 3cm) Thyromental Distance: Greater than 3 cm Neck Range of Motion: Full ROM Neck Circumference: Normal Teeth Condition: Normal Dentition ASA Classification ASA Score: ASA 2 Emergency Case?: No NPO Status NPO Status: NPO Clears >2 hours, Solids >8 hours Status Status: Negative HCG Anesthesia Plan Resuscitation Status: Full Code Anesthesia Technique: General Anesthesia Airway Planned: Endotracheal Tube Pain Management: Surgeon and patient request nerve block Monitors Used: Standard Monitors and SedLine Preoperative Comments:: Significant PMH: GERD, HTN, heart palpitations, Scoliosis, Hemangioma of vertebrae, depression Plan: GETA - TIVA w/ Propofol infusion, brachial plexus block - left, adjuncts as necessary, adequate IV access, sedline.
[2024-09-19] MEDS: Lactated Ringers 1,000 ML 30 ML IV (07:05)
--- NOTE | 2024-09-19 07:05 | ROE_ITS ---
Date of service: 09/19/24 Time of Service: 07:30 Operative Note Operative Note DATE OF PROCEDURE: 09/19/24 PRE-OP DIAGNOSIS: Left elbow lateral epicondylitis POST-OP DIAGNOSIS: same PROCEDURE: Left elbow arthroscopy with debridement lateral epicondylitis, CPT # [address]148 SURGEON: Gurjit Lopez CLIENT ACCOUNT SPECIALIST: None None ANESTHESIA TYPE: Local By Surgeon, General LMA/ETT and Primary Nerve Block Refer to Anesthesia Record COMPLICATIONS: None Patient was transported to: PACU Patient's condition: stable Indications: Please see complete medical record for details. Findings: Moderate anterior compartment synovitis. Moderate central distal humerus chondromalacia, mild radio-capitellar chondromalacia. Thickened ECRB and to a lesser extent ECRL. Procedure Description: In the operating room, general anesthesia was induced. The patient was positioned lateral on the operating room table. All bony prominences were well- padded. Preoperative antibiotics were administered. The elbow was prepped and draped in the usual sterile fashion. The correct patient, procedure, and side of the procedure were all verified prior to incision. 20 cc of 0.25% bupivacaine containing epinephrine was used to insufflate the right elbow joint through the lateral soft spot. An additional 10 cc of this local anesthetic was infiltrated about the planned anteromedial anterolateral portals. The melvi and spread technique was used to establish the proximal anteromedial portal. A diagnostic arthroscopy of the anterior elbow compartment was performed with findings noted above. A 18-gauge needle needle was used to localize a modified direct lateral working portal for lateral epicondyle and common extensor origin debridement. The needle was used to set the superior and inferior margins of the resection as well as free up tendon from its bony origin. A scalpel was used to melvi the skin followed by [employer] blade to meticulously release the ECRB as well as adjacent ECRL tendon from the lateral epicondyle. Care was taken to work anterior to the midline of the radial head to preserve the radial collateral ligament. A 3.5 mm shaver was used to debride approximately 1 cm of diseased tendon and lightly abrade lateral epicondyle bony origin. Shaver was also used to remove the small amount of lateral and anterior synovitis as well as very lightly debride chondromalacia. The elbow was drained of arthroscopic fluid. The medial and lateral portals were closed using 3-0 Monocryl in a buried interrupted fashion. Mastisol was applied about the incisions which were covered with Steri-Strips. Xeroform pieces were applied over both incisions and covered with dry 4 x 4 gauze. The r adial pulse was 2+. The elbow was gently compressed with keshav bandage. The patient awoke from anesthesia without complication and was transferred to the recovery room in stable fashion.
--- NOTE | 2024-09-19 07:07 | PDOC.DSDIS_ITS ---
Discharge Plan Disposition Patient Disposition: Home Discharge Details Attending Provider: Gurjit Lopez Primary Care Provider: Deepak Lechuga Home Meds and New Rx's Prescriptions: No Action bupropion HCl [Wellbutrin SR] 150 mg tablet sustained-release 12 hr 150 mg PO BID tramadol 300 mg capsule,ER biphase 24 hr 17-83 300 mg PO DAILY PRN Ozempic 1 mg/dose (4 mg/3 mL) pen injector 1 mg subcut QWEEK Patient Comments: patient states that takes 1.5mg weekly cyclobenzaprine 10 mg tablet 10 mg PO HS PRN ibuprofen 800 MG tablet 800 mg PO TID PRN PRN esomeprazole magnesium 20 mg capsule,delayed release(DR/EC) 20 mg PO DAILY Patient Comments: TAKE ONE CAPSULE BY MOUTH EVERY DAY BEFORE MEALS Discharge Orders Discharge Orders: Discharge Order (Routine); Ordered 09/19/24 Ordered By: Gurjit Lopez
--- NOTE | 2024-09-19 07:08 | PDOC.DSDIS_ITS ---
Date of service: 09/19/24 Time of Service: 09:30 Discharge Plan Disposition Patient Disposition: Home Condition: Stable Discharge Details Attending Provider: Gurjit Lopez Primary Care Provider: Deepak Lechuga Home Meds and New Rx's Prescriptions: New naproxen 250 mg tablet 250 - 500 mg PO BID PRN (Reason: Moderate pain) Qty: 30 0RF oxycodone 5 mg tablet 5 - 10 mg PO Q4H PRN (Reason: Moderate to severe pain) Qty: 9 0RF Continued bupropion HCl [Wellbutrin SR] 150 mg tablet sustained-release 12 hr 150 mg PO BID tramadol 300 mg capsule,ER biphase 24 hr 17-83 300 mg PO DAILY PRN Ozempic 1 mg/dose (4 mg/3 mL) pen injector 1 mg subcut QWEEK Patient Comments: patient states that takes 1.5mg weekly cyclobenzaprine 10 mg tablet 10 mg PO HS PRN ibuprofen 800 MG tablet 800 mg PO TID PRN PRN esomeprazole magnesium 20 mg capsule,delayed release(DR/EC) 20 mg PO DAILY Patient Comments: TAKE ONE CAPSULE BY MOUTH EVERY DAY BEFORE MEALS Discharge Instructions Additional Instructions: Surgery: Left elbow arthroscopy with debridement lateral epicondylitis Activity: Weightbearing as tolerated. Advance range of motion as comfort allows. Important to restore full elbow extension as soon as possible. Recommend avoiding repetitive activities and heavy lifting for 6-8 weeks. A physical therapy prescription will be sent electronically to start in 2 to 3 we eks. 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 No heavy lifting for 3+ months. Prescriptions: Naproxen 250 mg take 1-2 every 12 hours with a meal as needed for moderate pain Oxycodone 5 mg take 1-2 every 4-6 hours as needed for severe pain You may use [id number] Tylenol (acetaminophen) as needed for mild pain. These pain medications may be taken all at once or in different combinations as needed. Also, recommend Colace (docusate) as a stool softener as surgery and pain medicine cause constipation. You may try jbed-egy-esfvumo diphenhydramine (Benadryl) 25-50 mg nightly as a sleep aid Dressings: Leave dressing in place for 3 days. May then remove and leave open to air or cover incisions with Band-Aids. Leave the sticky Steri-Strips in place until they fall off or remove them after you shower. May shower after 5 days. Follow-up: 10-[address] Lopez You may take off the leg compression stockings this evening at home. You may also leave them on a few days longer if you have a history of leg swelling or edema. Let us know right away if you develop any redness, drainage, fevers, chest pain, or trouble breathing. Do not drink alcohol or drive for at least 24 hours after anesthesia. Please call the office during business hours with any questions or concerns. Discharge Orders Discharge Orders: Discharge Order (Routine); Ordered 09/19/24 Ordered By: Gurjit Lopez DS: Diagnosis Discharge Diagnosis (1) Lateral epicondylitis, left elbow: Status: Acute
--- NOTE | 2024-09-19 07:13 | W.ANESNERVE ---
Nerve Block Single Injection Procedure Date and Time Date Performed: 09/19/24 Procedure Start: 07:13 Location Where Procedure Performed Procedure Location: Day Surgery Unit Reason Performed: Postoperative Analgesia Requesting Provider: Gurjit Lopez Timeout Performed Timeout Performed: Yes Monitoring Used ECG, Blood Pressure, SpO2 and See EMR for corresponding vital signs Sterility Sterility: Hand Hygiene, Surgical Cap, Surgical Mask, Sterile Gloves, Sterile Drape/Sheet, Eye Protection and Chlorhexidine Sedation Given During Procedure Sedation Given (Indicate Dose Given): Versed IV Dose:: 2mg Patient Mental Status Patient Mental Status: Sedate with meaningful communication Nerve Block 1st Nerve Block: Laterality: Left Block Type: Interscalene Ultrasound Image Saved?: Yes Needle / Catheter Used: 80mm SonoPlex II Local Anesthetic Bolus (Indicate Dose Given): Lidocaine used for local infiltration of skin, Injected in 3-5ml increments after negative blood aspiration, Bupivacaine 0.5% Dose:: 10ml and Exparel Dose:: 10ml Additives (Indicate Dose Given): None Ultrasound: Sterile probe cover and gel used Nerve Stimulator: Supplement to Ultrasound use and No twitch or parasthesia noted < 0.5 mA Paresthesia: None Procedure Tolerated: No Complications and Patient tolerated well Procedure Outcome: Successful Performed By: Roman Arteaga Supervised By: Michelle Bell
[2024-09-19] MEDS: ceFAZolin 2 GM/50 ML BAG IVPB (07:44)
[2024-09-19] MEDS: TRANEXAMIC ACID/SOD. CHL. 1,000 MG/100 ML BAG 600 MG IVPB (07:51)
[2024-09-19] MEDS: Bupivacaine 0.25% Pres-Free W/EPI 30 ML VIAL (08:27)
[2024-09-19] MEDS: EPINEPHrine 10 MG/10 ML ML (09:00)
--- NOTE | 2024-09-19 11:07 | W.ANESPOSTOP ---
Postoperative Evaluation Date, Time and Location Date Performed: 09/19/24 Time Performed: 09:50 Patient Location: Day Surgery Unit Vital Signs Most Recent Imported Vital Signs: Most Recent Vital Signs Temp Pulse Resp BP Pulse Ox 36.1 C L 67 16 134/75 96 09/19/24 10:35 09/19/24 10:35 09/19/24 10:35 09/19/24 10:35 09/19/24 10:35 Pain Score Most Recent Pain Score: Most Recent Pain Score Pain Level 0 09/19/24 10:35 Assessment Mental Status: Awake (Alert & Oriented to Patient Baseline) Airway and Respiratory Function: Patent airway with normal (patient baseline) respiratory exam Cardiovascular Function: Hemodynamically Stable Hydration Status: Adequately Hydrated Nausea & Vomiting: No Nausea or Vomiting Pain: Pt. Denies Any Pain Peripheral Nerve Block: Regional nerve block not resolved at time of post operative discharge
== END 2024-09-19 11:10 | disposition home or self-care (01) ==
PROVIDERS: PCP Internal Medicine; Visit Provider Student in an Organized Health Care Education/Training Program
PROC: (CPT 29830; principal; 2024-09-19 07:30)
DX: M77.12 Lateral epicondylitis, left elbow (principal); I10 Essential (primary) hypertension; G89.18 Other acute postprocedural pain
CPT/HCPCS: 29837; 64415; 76942; 81025; C9290; J0665; J0690; J1100; J2250; J2405; J2704

== ENCOUNTER 2024-12-25 08:36 | Outpatient (REF) | payer OTHER, SELFPAY ==
--- OUTSIDE RECORDS SUMMARY | 2024-12-25 08:38 | XMS_ITS | Encounter Summary ---
[place] [address] Care Team Providers Care Leather Stitcher Name Role Phone Deepak Lechuga MD Primary Care Provider Reason for Referral * Diagnostic Test (Routine) - Closed Specialty Diagnoses / Procedures Referred By Contac t Referred To Contact Radiology Diagnoses Midline thoracic back pain Procedures MRI Thoracic Spine Without Contrast [facility] [address] [place] [address] [place] [address] Referral ID Status Reason Start Date Expiration Date V isits Requested Visits Authorized [id number] Closed Specialty Service Requested 02/29/2016 04/28/2016 1 1 Reason for Visit * Diagnostic Test (Routine) - Closed Specialty Diagnoses / Procedures Referred By Contac t Referred To Contact Radiology Diagnoses Midline thoracic back pain Procedures MRI Thoracic Spine Without Contrast [facility] [address] [address] [place] [address] Referral ID Status Reason Start Date Expiration Date V isits Requested Visits Authorized [id number] Closed Specialty Service Requested 02/29/2016 04/28/2016 1 1 Encounter Details Date Type Department Care Team (Latest Contact Info) Description 03/09/2016 4:21 PM EDT - 03/09/2016 11:59 PM EDT Hospital [place] [id number] Jeff Juarez MD Midline thoracic back pain Discharge Disposition: Home [...] There is a superior endplate deformity of [id number] with mild marrow edema, which is new [...] pain documented in this encounter Care Teams Leather Stitcher Relationship Specialty Start Date End Date Deepak Lechuga MD [address] [address] PCP - General 10/18/10 documented as of this encounter
--- OUTSIDE RECORDS SUMMARY | 2024-12-25 08:38 | XMS_ITS | Encounter Summary ---
Author Organization [facility] Address [address] [place] [address] Care Team Providers Care Toy Trains And Accessories Salesperson Name Role Phone Unavailable Primary Care Provider Unavailabl e Encounter Details Date Type Department Care Team (Late st Contact Info) Description 09/18/2013 Results Only [facility] [phone] Carl Preea, [address] [place] [address] Social History Tobacco Use Types Packs/Day Years Used Date Smoking Tobacco: Never Assessed Comments Unknown Sex and Gender Information Value Date Recorded Sex Assigned at Not on file Legal Sex Female 18:13 EST Gender Identity Not on file Sexual Orientation [...] ? CLAUDIA WEEMS ? Accession #: ? [id number] ? : ? 1970 (Age: 43) ??F [...] types 16,18,31,33,35, 39,45,51,52,56,58, 59,66, and 68 by assurance senior mediated amplification. Comments Document reviewed and electronically signed by: ? System Interface ? Report date: 09/26/2013 By the signature above, the attending physician certifies that he/she has personally conducted a gross and/or microscopic examination of the described specimens and rendered or confirmed the above diagnosis. End of Report [facility] 09/18/2013 09/19/2013 us Carl Perea PA-C PATHOLOGY ORDERABLES Final R esult [facility] [address] [place] [address] documented in this encounter Visit Diagnoses Not on filedocumented in this encounter
--- OUTSIDE RECORDS SUMMARY | 2024-12-25 08:38 | XMS_ITS | Referral Summary ---
Author Organization [facility] Address [address] [place] [address] Care Team Providers Care Material Loader Name Role Phone Unknown, Provider MD Primary Care Provider Unava ilable Social History Tobacco Use Types Packs/Day Years Used Date Smoking Tobacco: Never Assessed Comments Unknown Sex and Gender Information Value Date Recorded Sex Assigned at Not on file Legal Sex Female 18:13 EST Gender Identity Not on file Sexual Orientation Not on file Plan of Treatment Not on file Care Teams Material Loader Relationship Specialty Start Date End Date Unknown, Provider, PCP - General 04/20/15
--- OUTSIDE RECORDS SUMMARY | 2024-12-25 08:38 | XMS_ITS | Encounter Summary ---
Author Organization [facility] Address [address] [place] [address] Care Team Providers Care Tube Mounter Name Role Phone Unavailable Primary Care Provider Unavailabl e Encounter Details Date Type Department Care Team (Late st Contact Info) Description 04/18/2006 Results Only [facility] conversion [address] [place] [address] Eugenia Lackey [place], [place] [id number] Social History Tobacco Use Types Packs/Day Years [...] ? CLAUDIA WEEMS ? Accession #: ? [id number] : ? 1970 (Age: 36) ??F ?Collect Date: ? 04/18/2006 Location: ? [facility] ? Receive Date: ? 04/19/2006 Provider: ?EUGENIA LACKEY CNM Copy to: ? Specimen/Source: ?ThinPrep Pap Test, Cervix/Endocervix, processed on [employer]) ThinPrep Imaging System, with manual evaluation Last [...] End of Report [facility] 04/18/2006 04/19/2006 us Eugenia Lackey CNM PATHOLOGY ORDERABLES Final Res ult [facility] [address] [place] [address] documented in this encounter Visit Diagnoses Not on filedocumented in this encounter
--- OUTSIDE RECORDS SUMMARY | 2024-12-25 08:38 | XMS_ITS | Clinical Summary ---
Author Organization [facility] Address [address] [place] [address] Care Team Providers Care Data Warehouse Consultant Name Role Phone Unknown, Provider MD Primary [...] 3-dose series) 01/17 COVID-19 Vaccine ( season) 2024 Care Teams Data Warehouse Consultant Relationship Specialty Start Date End Date Unknown, Provider, PCP - General 04/20/15
--- OUTSIDE RECORDS SUMMARY | 2024-12-25 08:38 | XMS_ITS | Encounter Summary ---
Author Organization [facility] [place] [address] Care Team Providers Care Jr. Java Developer Name Role Phone Deepak Lechuga MD Primary Care Provider Reason for Visit * Reason Comments Finger Pain Encounter Details Date Type Department Care Team (Late st Contact Info) Description 02/05/2013 2:43 PM EDT - 02/05/2013 6:42 PM EDT Emergency [place] [address] Adelaida Mike MD [facility] [place] [address] Finger infection (Primary Dx); Allergic reaction Discharge [...] questions Dr. Siegel from Infectious Disease at [facility] has agreed to help guide your therapy. [...] 8am - 5pm (see below) Orthopaedic Physician supervisor dehydrogenation --After 5pm and Weekends [phone] If you develop fever, chills, increasing pain, swelling, redness or other worrisome symptoms pleasealso contact us at the numbers above. Your care today was provided by Nina Garnica MD If you would like to be seen again at [facility] for follow-up please contact us at the number below. General orthopedic clinic (trauma/sports/pediatrics) [phone] documented in this encounter Medications at Time [...] Orthopedics in to assess pt. * Adelaida iMke MD - 02/05/2013 3:15 PM EDT Chief [...] a 43 y.o. female who presents to [facility] with L. Index finger infection History of [...] or throat tightness. Adelaida Mike MD 02/05/13 1506 * Gavin Marley RN - 02/05/2013 3:03 [...] Rodriguez MD - 02/05/2013 5:44 PM EDT Hardwood Floor Sander Consult Note Name: Claudia Franks Age: 43 y.o. Sex; Female Date of : 1970 PCP Deepak Lechuga MD [phone] Reason for Consult: We have been asked to see Claudia Franks at the request of Adelaida Mike MD, for evaluation of the patient's orthopaedic injuries and recommendations for treatment. I have reviewed the available records, interviewed and examined the patient. Date of Consultation: 02/05/2013 Place of Service: Emergency Department ID: 43 y.o. 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 She thought that the wound had healed [...] much material aspirated and sent her to [facility] for further evaluation. Review of Systems: She [...] Please call Becky Garnica on pager # [phone] with questions or concerns. ?? Attending supervisor dehydrogenation: Dr. Rodriguez I have contacted the referring [...] Lechuga referred pt to Dr Rodriguez at [facility] for evaluation of tendon impairment/infection of her left index finger/hand. documented in this encounter Plan of Treatment Not on file documented as of this encounter Procedures Procedure Name Priority Date/Time Associated Diagnosis Comments POCT URINE DIPSTICK STAT 02/05/2013 3 :02 PM EDT documented in this encounter Results * POCT urine dipstick (02/05/2013 3:02 PM EDT) POC Sp Anson 1.015 1.002 - 1.030 POC pH, UA [...] STAT 1808 (Given - Provid er: Pema Ayers RN) doxycycline (VIBRA-TABS) tablet 100 mg (COMPLETED) [...] Structure documented in this encounter Care Teams Jr. Java Developer Relationship Specialty Start Date End Date Deepak Lechuga MD [address] [address] PCP - General 10/18/10 documented as of this encounter
--- OUTSIDE RECORDS SUMMARY | 2024-12-25 08:38 | XMS_ITS | Encounter Summary ---
Author Organization [facility] Address [address] [place] [address] Care Team Providers Care Case Assembler Name Role Phone Unavailable Primary Care Provider Unavailabl e Encounter Details Date Type Department Care Team (Late st Contact Info) Description 03/11/2009 Orders Only [facility] Laboratory Services - [facility] ([facility]) [address] [place] [address] Jeanine Nava, [facility] [address] [place] [address] [place] [address] Social History Tobacco Use Types [...] ? CLAUDIA WEEMS ? Accession #: ? [id number] ? : ? 1970 (Age: 39) ??F ?Collect Date: ? 03/11/2009 ? Location: ? [facility] ? Receive Date: ? 03/15/2009 ? Provider: ?JEANINE BETZAIDA ELECTRICAL TEST TECHNICIAN ? Copy to: ? Specimen/Source: ?Pap Test, [...] of Report ? RICKY LOCKETT 03/11/2009 03/15/2009 us Jeanine Nava ELECTRICAL TEST TECHNICIAN PATHOLOGY ORDERABLES Final R esult RICKY LOCKETT [address] [place] [address] documented in this encounter Visit Diagnoses Not on filedocumented in this encounter
--- OUTSIDE RECORDS SUMMARY | 2024-12-25 08:38 | XMS_ITS | Encounter Summary ---
Author Organization [facility] Address [address] [place] [address] Care Team Providers Care Radio News Anchor Name Role Phone Unknown, Provider Primary Care Provider Unava ilable Encounter Details Date Type Department Care Team (Late st Contact Info) Description 05/06/2020 Lab Requisition [facility] Pathology & Laboratory Medicine - [facility] [address], [place] [id number] Outr Resulting Lab, Provider Social History Tobacco [...] rt-PCR Result NEGATIVE Negative 05/07/2020 19:18 EDT [facility] Comment: 2019-novel Coronavirus (2019-nCoV) not [...] in accordance with CLIA regulations, [employer] (CAP) guidelines (Feb 12, 2020), and FDA guidance (Jan 24, 2020). This test is only for use under the Food and Drug Administration's Emergency Use Authorization. Swab ENTIRE NASOPHARYNX / Unknown 05/06/2020 8:00 EDT 05/06/2020 16:00 EDT us Provider Outr Resulting Lab MICROBIOLOGY - GENER AL ORDERABLES Final Result [facility] [place], [place] * COVID-19 TESTING (05/06/2020 8:00 EDT) COVID-19 rt-PCR Result NEGATIVE Negative 05/07/2020 23:53 EDT [facility] Comment: 2019-novel Coronavirus (2019-nCoV) [...] in accordance with CLIA regulations, College [employer] (CAP) guidelines (Feb 12, 2020), and FDA guidance (Jan 24, 2020). This test is only for use under the Food and Drug Administration's Emergency Use Authorization. Performing Lab [facility] 05/07/2020 23:53 EDT [facility] Swab 05/06/2020 8:00 EDT 05/06/2020 16:00 EDT us Provider Outr Resulting Lab MICROBIOLOGY - GENER AL ORDERABLES Final Result [facility] [address] [place] [address] [facility] [place], [place] documented in this encounter Visit Diagnoses Not on filedocumented in this encounter Care Teams Radio News Anchor Relationship Specialty Start Date End Date Unknown, Provider, PCP - General 04/20/15 documented as of this encounter
--- OUTSIDE RECORDS SUMMARY | 2024-12-25 08:38 | XMS_ITS | Encounter Summary ---
Author Organization [facility] [place] [address] Care Team Providers Care Second Facing Baster Name Role Phone Deepak Lechuga MD Primary Care Provider Reason for Visit * Reason Onset Date Comments Medication Refill 04/04/2017 Encounter Details Date Type Department Care Team (Late st Contact Info) Description 04/04/2017 Refill [place] [address] Vincent Kimball MD [facility] [place] [address] Social History Tobacco Use Types Packs/Day Years [...] on filedocumented in this encounter Care Teams Second Facing Baster Relationship Specialty Start Date End Date Deepak Lechuga MD [address] [place] [address] PCP - General 10/18/10 documented as of this encounter
--- OUTSIDE RECORDS SUMMARY | 2024-12-25 08:38 | XMS_ITS | Encounter Summary ---
[place] [address] Care Team Providers Care Business Systems Architect Name Role Phone Deepak Lechuga MD Primary Care Provider [phone] Encounter Details Date Type Department Care Team (Late st Contact Info) Description 02/24/2016 [place] [address] Conchis Beckham Social History Tobacco Use Types [...] on filedocumented in this encounter Care Teams Business Systems Architect Relationship Specialty Start Date End Date Deepak Lechuga MD [address] [place] [address] PCP - General 10/18/10 documented as of this encounter
--- OUTSIDE RECORDS SUMMARY | 2024-12-25 08:38 | XMS_ITS | Encounter Summary ---
Author Organization [facility] Address [address] [place] [address] Care Team Providers Care Meat Grinder Name Role Phone Unavailable Primary Care Provider Unavailabl e Encounter Details Date Type Department Care Team (Late st Contact Info) Description 12/16/2007 Results Only [facility] conversion [address] [place] [address] Jeanine Nava, [facility] [address] [place] [address] [place] [address] Social History Tobacco Use Types [...] ? CLAUDIA WEEMS ? Accession #: ? [id number] : ? 1970 (Age: 37) ??F ?Collect Date: ? 12/16/2007 Location: ? [facility] ? Receive Date: ? 12/17/2007 Provider: ?JEANINE NAVA SPOOL SORTER Copy to: ? Specimen/Source: ?ThinPrep Pap Test, Cervix/Endocervix, processed on [employer] ThinPrep Imaging System, with manual evaluation Last Menstrual Period: ? 11-25-07 Other: ? HPVA - HPV testing requested if ASC-US on the current ThinPrep Pap test. ? SPECIMEN ADEQUACY ? Satisfactory for Evaluation - transformation zone component present GENERAL CATEGORIZATION ? Negative for Intraepithelial Lesion or Malignancy ? Document reviewed and electronically signed by: ? Gaviota Figueroa, CT(ASCP)(IAC) ? Report Date: ??12/20/2007 10:36 End of Report RICKY LOCKETT 12/16/2007 12/17/2007 us Jeanine Nava SPOOL SORTER PATHOLOGY ORDERABLES Final R esult RICKY LOCKETT [address] [place] [address] documented in this encounter Visit Diagnoses Not on filedocumented in this encounter
--- OUTSIDE RECORDS SUMMARY | 2024-12-25 08:38 | XMS_ITS | Encounter Summary ---
Author Organization [facility] Address [address] [place] [address] Care Team Providers Care Craps Manager Name Role Phone Unavailable Primary Care Provider Unavailabl e Encounter Details Date Type Department Care Team (Late st Contact Info) Description 04/15/2015 Results Only [facility] [phone] Smitha Mobley PA [address] [place] [address] Social History Tobacco Use Types [...] ? CLAUDIA WEEMS ? Accession #: ? [id number] ? : ? 1970 (Age: 45) ??F [...] who concurs with the above diagnosis. ??(Dr. Wihtlock)/lulu Microscopic Description: The epidermis is hyperplastic with [...] and cords of similar melanocytes that show fuel technician maturation with descent. ??There is papillary dermal fibroplasia. ??Story-1 (Melan-A) ALK PHOS (A103, Regan) does not show evidence of well developed [...] performance characteristics have been determined by [facility]. ??This laboratory is certified under the Clinical [...] Santizo 04/16/2015 9:40 AM End of Report [facility] 04/15/2015 8:52 EDT 04/15/2015 8:52 EDT us Smitha SARGENT PATHOLOGY ORDERABLES Final Resu lt [facility] [address] [place] [address] documented in this encounter Visit Diagnoses Not on filedocumented in this encounter
--- OUTSIDE RECORDS SUMMARY | 2024-12-25 08:38 | XMS_ITS | Encounter Summary ---
Author Organization [facility] Address [address] [place] [address] Care Team Providers Care Feather Curling Machine Operator Name Role Phone Unavailable Primary Care Provider Unavailabl e Encounter Details Date Type Department Care Team (Late st Contact Info) Description 04/28/2010 Results Only [facility] Laboratory Services - [facility] ([facility] [address] [place], [place] [id number] Jeanine Nava, [facility] [address] [place] [address] [place] [address] Social History Tobacco Use Types [...] LAB 04/28/2010 9:59 EDT 05/04/2010 9:59 EDT us Jeanine Tiara Elijah MICROFICHE DUPLICATOR MICROBIOLOGY - GENERAL ORDER RADHA Final Result [facility] [address] [place] [address] * CYTOPATHOLOGY (04/28/2010 0:00 EDT) Pathology Report: CYTOPATHOLOGY REPORT ? Reports generated via electronic interface contain original data; ? however they are lacking the format of the original report. ? Caution should be taken when reading/interpreti ng unformatted reports. ? Name: ? CLAUDIA WEEMS ? Accession #: ? [id number] ? : ? 1970 (Age: 40) ??F ?Collect Date: ? 04/28/2010 ? Location: ? [facility] ? Receive Date: ? 04/29/2010 ? Provider: ?JEANINE ELIJAH MICROFICHE DUPLICATOR ? Copy to: ? Specimen/Source: ?Pap Test, [...] ? Gaviota Figueroa, MAGDA(ASCP)(IAC) ? Report Date: ??05/03/2010 13:03 ? End of Report ? [facility] 04/28/2010 04/29/2010 us Jeanine Nava MICROFICHE DUPLICATOR PATHOLOGY ORDERABLES Final R esult [facility] [address] [place] [address] documented in this encounter Visit Diagnoses Not on filedocumented in this encounter
--- OUTSIDE RECORDS SUMMARY | 2024-12-25 08:38 | XMS_ITS | Encounter Summary ---
[place] [address] Care Team Providers Care Paymaster Of Purses Name Role Phone Deepak Lechuga MD Primary Care Provider Reason for Referral * Physical Therapy (Routine) - Closed Specialty Diagnoses / Procedures Referred By Erika t Referred To Contact Physical Therapy Diagnoses Midline thoracic back pain Jeff Juarez MD [facility] [place] [address] [facility] [place] [address] Referral ID Status Reason Start Date Expiration Date V isits Requested Visits Authorized [id number] Closed Evaluate and Treat 12/16/2015 12/15/2016 3 3 Reason for Visit * Reason Comments Back Pain Encounter Details Date Type Department Care Team (Late st Contact Info) Description 12/16/2015 1:40 PM EST Office [place] [address] Jeff Juarez MD Midline thoracic back pain Social History Tobacco [...] did seem to make a difference temporarily. medicare biller was not helpful. She is working in [...] pain documented in this encounter Care Teams Paymaster Of Purses Relationship Specialty Start Date End Date Deepak Lechuga MD [address] [place] [address] PCP - General 10/18/10 documented as of this encounter
--- OUTSIDE RECORDS SUMMARY | 2024-12-25 08:38 | XMS_ITS | Encounter Summary ---
[place] [address] Care Team Providers Care Manager Investment Banking Name Role Phone Deepak Lechuga MD Primary Care Provider [phone] Reason for Referral * Diagnostic Test (Routine) - Closed Specialty Diagnoses / Procedures Referred By Erika garcias Referred To Contact Radiology Diagnoses Midline thoracic back pain Procedures MRI Thoracic Spine Without Contrast [facility] [place] [address] [place] [address] [facility] [place] [place] [address] Referral ID Status Reason Start Date Expiration Date V isits Requested Visits Authorized [id number] Closed Specialty Service Requested 02/29/2016 04/28/2016 1 1 Reason for Visit * Reason Comments Back Pain Encounter Details Date Type Department Care Team (Late st Contact Info) Description 02/24/2016 11:00 AM EDT Office [place] [address] Sunday Auguste, PT Midline thoracic back pain Social History Tobacco [...] There is a superior endplate deformity of [id number] with mild marrow edema, which is new [...] pain documented in this encounter Care Teams Manager Investment Banking Relationship Specialty Start Date End Date Deepak Lechuga MD [address] [place] [address] PCP - General 10/18/10 documented as of this encounter
--- OUTSIDE RECORDS SUMMARY | 2024-12-25 08:38 | XMS_ITS | Encounter Summary ---
Author Organization [facility] Address [address] [place] [address] Care Team Providers Care Property Insurance Inspector Name Role Phone Unknown, Provider Primary Care Provider Unava ilable Encounter Details Date Type Department Care Team (Late st Contact Info) Description 02/03/2022 Lab Requisition [facility] Pathology & Laboratory Medicine - [facility] [place] [address] [place] [address] Marija Weathers [address] [place] [address] [place] [address] Encounter for other general examination [...] types, PCR Negative Negative 02/14/2022 7:28 EDT [facility] Comment:No E6 or E7 mRNA is detected from HPV types 16,18,31,33,35,39,45,51,52,56,58,59,66, and 68 by environmental marketing representative mediated amplification. Papanicolaou smear specimen (specimen) CERVIX UTERI STRUCTURE / Unknown 02/03/2022 8:30 EST 02/10/2022 17:36 EDT Marija Weathers MICROBIOLOGY - GENERAL ORDERABLE S Final Result [facility] [address] [place] [address] * PAP TEST (02/03/2022 8:30 EST) Specimens A. Cervix and/or Endocervix , ThinPrep Imaging System with Manual Evaluation 02/14/2022 7:28 [facility] Specimen Adequacy Satisfactory for Evaluation - transformation zone component present 02/14/2022 7:28 [facility] General Categorization Negative for intraepithelial lesion or malignancy 02/14/2022 7:28 [facility] Descriptive Diagnosis Reactive cellular changes associated with inflammation present (includes repair). 02/14/2022 7:28 [facility] Attestation By the signature below, the attending physician certifies that they have personally conducted a gross and/or microscopic examination of the described specimens and rendered or confirmed the above diagnosis. 02/14/2022 7:28 [facility] at 0728 Clinical History See below 02/15/20 7:28 [facility] HPV The result for the Human Papillomavirus (HPV) Detection-High Risk Types is Negative. No E6 or E7 mRNA is detected from HPV types 16,18,31,33,35,39 ,45,51,52,56,58,5 9,66, and 68 by environmental marketing representative mediated amplification.Bessy ting was performed on specimen [id number] and was resulted on 02/14/2022 0718 EDT by JESUS, LAB INSTRUMENT RESULTS IN 02/14/2022 7:28 [facility] Performing Lab [facility] 02/14/2022 7:28 EDT [facility] Scanned Images 02/14/2022 7:28 EDT [facility] Papanicolaou smear specimen (specimen) CERVIX UTERI STRUCTURE / Unknown 02/03/2022 8:30 EST 02/06/2022 15:07 EDT us Marija Weathers PATHOLOGY ORDERABLES Final Resul t Performing Organization Address City/[facility]/ZIP Co de Phone Number [facility] [address] [place] [address] * CHLAMYDIA/N. GONORRHOEAE AMPLIFIED RNA, THINPREP (02/03/2022 8:30 EST) Neisseria gonorrhoeae Result Negative Negative 02/07/2022 7:16 EDT [facility] Chlamydia trachomatis Result Negative Negative 02/07/2022 7:16 EDT [facility] Papanicolaou smear specimen (specimen) CERVIX UTERI STRUCTURE / Unknown 02/03/2022 8:30 EST 02/06/2022 7:24 EDT us Marija Weathers MICROBIOLOGY - GENERAL ORDERABLE S Final Result Performing Organization Address City/[facility]/ZIP Co de Phone Number [facility] [address] [place] [address] documented in this encounter Visit Diagnoses Diagnosis Encounter for other general examination documented in this encounter Care Teams Property Insurance Inspector Relationship Specialty Start Date End Date Unknown, Provider, PCP - General 04/20/15 documented as of this encounter
--- OUTSIDE RECORDS SUMMARY | 2024-12-25 08:38 | XMS_ITS | Encounter Summary ---
Author Organization [facility] Address [address] [place] [address] Care Team Providers Care Business Operations Manager Name Role Phone Unknown, Provider Primary Care Provider Unava ilable Encounter Details Date Type Department Care Team ([facility] st Contact Info) Description 07/13/2017 Results Only [facility] [place] [facility] [phone] Haydee Welch, NURSE LEADER [address] [place] [address] Social History Tobacco Use Types Packs/Day Years [...] ? CLAUDIA WEEMS ? Accession #: ? [id number] ? : ? 1970 (Age: 47) ??F [...] reviewed and electronically signed by: ? MAGDA Maria(ASCP) ? Report ??Date: 07/23/2017 14:33 HPV with Pap Test ? Date Ordered: ? 07/23/2017 ? Status: ?? Signed Out ?Date Complete: ? 07/24/2017 ? By: ??System Interface ? Date Reported: ? 07/24/2017 ? Interpretation RESULT: Negative for HPV. No E6 or E7 mRNA is detected from HPV types 16,18,31,33,35, 39,45,51,52,56,58, 59,66, and 68 by [facility] assisted living mediated amplification. Comments Document reviewed and electronically signed by: ? System Interface ? Report date: 07/24/2017 By the signature above, the attending physician certifies that he/she has personally conducted a gross and/or microscopic examination of the described specimens and rendered or confirmed the above diagnosis. End of Report [facility] 07/13/2017 07/16/2017 us Haydee Welch NP PATHOLOGY ORDERABLES Final Resul t [facility] [address] [place] [address] documented in this encounter Visit Diagnoses Not on filedocumented in this encounter Care Teams Business Operations Manager Relationship Specialty Start Date End Date Unknown, Provider, PCP - General 04/20/15 documented as of this encounter
--- OUTSIDE RECORDS SUMMARY | 2024-12-25 08:38 | XMS_ITS | Encounter Summary ---
Author Organization [facility] Address [address] [place] [address] Care Team Providers Care Equipment Sterilizer Name Role Phone Unavailable Primary Care Provider Unavailabl e Encounter Details Date Type Department Care Team (Late st Contact Info) Description 12/04/2003 Results Only [facility] conversion [address] [place] [address] Jeanine Nava, [facility] [address] [place] [address] [place] [address] Social History Tobacco Use Types [...] ? CLAUDIA WEEMS ? Accession #: ? [id number] : ? 1970 (Age: 33) ??F ?Collect Date: ? 12/04/2003 Location: ? [facility] ? Receive Date: ? 12/09/2003 Provider: ?JEANINE NAVA FISCAL ACCOUNTING CLERK Copy to: ? Specimen/Source: ?ThinPrep Pap Test, Cervix/Endocervix Last Menstrual Period: ? 11/18/03 ? SPECIMEN ADEQUACY ? Satisfactory for Evaluation - transformation zone component present GENERAL CATEGORIZATION ? Negative for Intraepithelial Lesion or Malignancy ? Document reviewed and electronically signed by: ? MAGDA Das(ASCP) ? Report Date: ??12/14/2003 09:59 End of Report [facility] 12/04/2003 12/09/2003 us Jeanine Nava FISCAL ACCOUNTING CLERK PATHOLOGY ORDERABLES Final R esult [facility]ICKY LOCKETT [address] [place] [address] documented in this encounter Visit Diagnoses Not on filedocumented in this encounter
--- OUTSIDE RECORDS SUMMARY | 2024-12-25 08:38 | XMS_ITS | Encounter Summary ---
[place] [address] Care Team Providers Care Dental Office Coordinator Name Role Phone Deepak Lechuga MD Primary Care Provider Reason for Visit * Reason Comments Back Pain thoracic pain Encounter Details Date Type Department Care Team (Late st Contact Info) Description 04/20/2016 4:40 PM EDT Office [place] [address] Jeff Juarez MD Chronic midline thoracic back pain Social History [...] pain documented in this encounter Care Teams Dental Office Coordinator Relationship Specialty Start Date End Date Deepak Lcehuga MD [address] [place] [address] PCP - General 10/18/10 documented as of this encounter
--- OUTSIDE RECORDS SUMMARY | 2024-12-25 08:38 | XMS_ITS | Encounter Summary ---
[place] [address] Care Team Providers Care Tennis Net Maker Name Role Phone Deepak Lechuga MD Primary Care Provider Reason for Visit * Reason Comments Back Pain Encounter Details Date Type Department Care Team (Late st Contact Info) Description 12/23/2015 10:00 AM EST Office [place] [phone] Sunday Auguste, PT Midline thoracic back pain [...] pain documented in this encounter Care Teams Tennis Net Maker Relationship Specialty Start Date End Date Deepak Lechuga MD [address] [address] PCP - General 10/18/10 documented as of this encounter
--- OUTSIDE RECORDS SUMMARY | 2024-12-25 08:38 | XMS_ITS | Encounter Summary ---
Author Organization [facility] Address [address] [place] [address] Care Team Providers Care Windows Architect Name Role Phone Unknown, Provider Primary Care Provider Unava ilable Encounter Details Date Type Department Care Team (Late st Contact Info) Description 11/09/2020 Lab Requisition [facility] Pathology & Laboratory Medicine - [facility] [address], [place] [id number] Outr Resulting Lab, Provider Social History Tobacco [...] in accordance with CLIA regulations, [employer] (CAP) guidelines (Feb 12, 2020), and FDA guidance (Jan 24, 2020). This test is only for use under the Food and Drug Administration's Emergency Use Authorization. Swab ENTIRE NASOPHARYNX / Unknown 11/08/2020 14:30 EST 11/09/2020 16:19 EST us Provider Outr Resulting Lab MICROBIOLOGY - GENER AL ORDERABLES Final Result [facility] [place], [place] * COVID-19 TESTING (11/08/2020 14:30 EST) COVID-19 rt-PCR Result NEGATIVE Negative 11/11/2020 21:31 EST [facility] Comment: 2019-novel Coronavirus (2019-nCoV) not detected [...] in accordance with CLIA regulations, [employer] [place] (CAP) guidelines (Feb 12, 2020), and FDA guidance (Jan 24, 2020). This test is only for use under the Food and Drug Administration's Emergency Use Authorization. Performing Lab [facility] 11/11/2020 21:31 EST [facility] Swab 11/08/2020 14:3 0 EST 11/09/2020 16:19 EST us Provider Outr Resulting Lab MICROBIOLOGY - GENER AL ORDERABLES Final Result [facility] [address] [place] [address] [facility] [place], [place] documented in this encounter Visit Diagnoses Not on filedocumented in this encounter Care Teams Windows Architect Relationship Specialty Start Date End Date Unknown, Provider, PCP - General 04/20/15 documented as of this encounter
--- OUTSIDE RECORDS SUMMARY | 2024-12-25 08:38 | XMS_ITS | Encounter Summary ---
Author Organization [facility] Address [address] [place] [address] Care Team Providers Care Medical Information Specialist Name Role Phone Unknown, Provider Primary Care Provider Unava ilable Encounter Details Date Type Department Care Team (Late st Contact Info) Description 07/26/2021 Lab Requisition [facility] Pathology & Laboratory Medicine - [facility] [address] [place] [address] Outr Resulting Lab, Provider Social History Tobacco [...] Priority Date/Time Associated Diagnosis Comments ZZCOVID-19 TEST [facility] PCR Today 07/25/2021 10:20 EDT COVID-19 TESTING Routine 07/25/2021 10:2 0 EDT documented in this encounter Results * COVID-19 TEST [facility] PCR (07/25/2021 10:20 EDT) Swab ENTIRE NASOPHARYNX / Unknown 07/25/2021 10:20 EDT 07/26/2021 15:33 EDT us Provider Outr Resulting Lab MICROBIOLOGY - GENER AL ORDERABLES Final Result [facility] [address] [place] [address] * COVID-19 TESTING (07/25/2021 10:20 EDT) COVID-19 rt-PCR Result Negative Negative 07/27/2021 16:43 EDT [facility] Comment: This test has not [...] developed and its performance characteristics determined by [facility]. It has not been cleared or approved [...] testing. This test is based on the [facility] COVID-19 Emergency Use Authorization (EUA) assay, with minor modification as defined by the FDA Performed on the aaTago 7 Pro RT-PCR System. Performing Lab [facility] 07/27/2021 16:43 EDT [facility] Swab 07/25/2021 10:2 0 EDT 07/26/2021 15:33 EDT us Provider Outr Resulting Lab MICROBIOLOGY - GENER AL ORDERABLES Final Result [facility] [address] [place] [address] documented in this encounter Visit Diagnoses Not on filedocumented in this encounter Care Teams Medical Information Specialist Relationship Specialty Start Date End Date Unknown, Provider, PCP - General 04/20/15 documented as of this encounter
--- OUTSIDE RECORDS SUMMARY | 2024-12-25 08:38 | XMS_ITS | Encounter Summary ---
Author Organization [facility] Address [address] [place] [address] Care Team Providers Care Serology Technician Name Role Phone Unknown, Provider MD Primary Care Provider Unava ilable Encounter Details Date Type Department Care Team (Late st Contact Info) Description 09/16/2015 Results Only [facility] [phone] Baron Luther MD [address] [place] [address] Social History Tobacco Use Types [...] ? CLAUDIA WEEMS ? Accession #: ? [id number] ? : ? 1970 (Age: 45) ??F [...] Reed 09/18/2015 9:10 AM End of Report [facility] 09/16/2015 5:43 EDT 09/18/2015 5:43 EDT us Baron Luther MD PATHOLOGY ORDERABLES Final Result [facility] [address] [place] [address] documented in this encounter Visit Diagnoses Not on filedocumented in this encounter Care Teams Serology Technician Relationship Specialty Start Date End Date Unknown, Provider, PCP - General 04/20/15 documented as of this encounter
--- OUTSIDE RECORDS SUMMARY | 2024-12-25 08:38 | XMS_ITS | Encounter Summary ---
Author Organization [facility] [place] [address] Care Team Providers Care Healthcare Financial Analyst Name Role Phone Deepak Lechuga MD Primary Care Provider [phone] Encounter Details Date Type Department Care Team (Late st Contact Info) Description 02/19/2014 - 02/19/2014 11:59 PM EDT Hospital Encounter [facility] [place] [phone] [facility], [facility]Dr Taveras Pain Discharge Disposition: Home Social History [...] MR Spine (02/19/2014 12:00 AM EDT) Narrative [facility] - 12/13/2015 6:04 PM EST See PACS for result report. Dr Taveras [facility] FILM LIBRARY ORD ERABLES [place], [place] documented in this encounter Visit Diagnoses Diagnosis Pain Generalized pain documented in this encounter Care Teams Healthcare Financial Analyst Relationship Specialty Start Date End Date Deepak Lechuga MD [address] [place] [id number] PCP - General 10/18/10 documented as of this encounter
--- OUTSIDE RECORDS SUMMARY | 2024-12-25 08:38 | XMS_ITS | Encounter Summary ---
Author Organization [facility] Address [address] [place] [address] Care Team Providers Care Terra Cotta Mason Name Role Phone Unknown, Provider MD Primary Care Provider Unava ilable Encounter Details Date Type Department Care Team (Latest Contact Info) Description 09/16/2015 10:41 EDT - 09/16/2015 23:59 EDT Hospital Encounter [address] [address] Unknown, Provider, Discharge Disposition: Home or Self [...] Code Departure Means Destination Home or Self Snf documented in this encounter Plan of Treatment Not on file documented as of this encounter Visit Diagnoses Not on filedocumented in this encounter Care Teams Terra Cotta Mason Relationship Specialty Start Date End Date Unknown, Provider, PCP - General 04/20/15 documented as of this encounter
--- OUTSIDE RECORDS SUMMARY | 2024-12-25 08:38 | XMS_ITS | Encounter Summary ---
Author Organization [facility] Address [address] [place] [address] Care Team Providers Care Party Plan Dealer Name Role Phone Unavailable Primary Care Provider Unavailabl e Encounter Details Date Type Department Care Team (Late st Contact Info) Description 11/21/2002 Results Only [facility] [address] [place] [address] Jeanine Nava, [facility] [address] [place] [address] [place] [address] Social History Tobacco Use Types [...] ? CLAUDIA WEEMS ? Accession #: ? [id number] : ? 1970 (Age: 32) ??F ?Collect Date: ? 11/21/2002 Location: ? [facility] ? Receive Date: ? 11/25/2002 Provider: ?JEANINE NAVA ENERGY AUDITOR Copy to: ? Specimen/Source: ?ThinPrep Pap Test, Cervix Last Menstrual Period: ? 11/14/02 ? SPECIMEN ADEQUACY ? Satisfactory for Evaluation - transformation zone component present GENERAL CATEGORIZATION ? Negative for Intraepithelial Lesion or Malignancy ? Document reviewed and electronically signed by: ? MAGDA Varela(ASCP) ? Report Date: ??11/27/2002 10:51 End of Report [facility] 11/21/2002 11/25/2002 us Jeanine Nava ENERGY AUDITOR PATHOLOGY ORDERABLES Final R esult [facility] [address] [place] [address] documented in this encounter Visit Diagnoses Not on filedocumented in this encounter
--- OUTSIDE RECORDS SUMMARY | 2024-12-25 08:38 | XMS_ITS | Encounter Summary ---
[place] [address] Care Team Providers Care Trackmobile Operator Name Role Phone Deepak Lechuga MD Primary Care Provider [phone] Reason for Visit * Reason Comments Back Pain Encounter Details Date Type Department Care Team (Late st Contact Info) Description 01/13/2016 3:00 PM EST Office [place] [phone] Sunday Auguste, PT Midline thoracic back pain Social History Tobacco Use Types Packs/Day Years Used Date Smoking Tobacco: Former Cigarettes Q uit: 12/16/2004 Smokeless Tobacco: Never Sex and Gender Information Value Date Recorded Sex Assigned at Not on file Gender Identity Not on file Sexual Orientation Not on file documented as of this encounter Progress Notes * Sunday Auguste, PT - 01/13/2016 3:04 PM EST [...] pain documented in this encounter Care Teams Trackmobile Operator Relationship Specialty Start Date End Date Deepak Lechuga MD [address] [place] [address] PCP - General 10/18/10 documented as of this encounter
--- OUTSIDE RECORDS SUMMARY | 2024-12-25 08:38 | XMS_ITS | Encounter Summary ---
Author Organization [facility] Address [address] [place] [address] Care Team Providers Care Welt Cutter Name Role Phone Unavailable Primary Care Provider Unavailabl e Encounter Details Date Type Department Care Team (Latest Contact Info) Description 04/15/2015 15:34 EDT - 04/15/2015 23:59 EDT Hospital Encounter [address] [address] Unknown, Provider, MD Discharge Disposition: Home or Self Care Social [...] Code Departure Means Destination Home or Self Fpc documented in this encounter Plan of Treatment Not on file documented as of this encounter Visit Diagnoses Not on filedocumented in this encounter
--- OUTSIDE RECORDS SUMMARY | 2024-12-25 08:38 | XMS_ITS | Clinical Summary ---
Author Organization [facility] [place] [address] Care Team Providers Care Freight Clerk Name Role Phone Deepak Lechuga MD Primary Care Provider [phone] Allergies Active Allergy Reactions Criticality Noted Date [...] Decision Needed 2012 Breast Cancer screening 2012 Pneumoccocal Vaccine: 50+ (1 of 1 - PCV) 2022 Zoster vaccine (1 of 2) 2022 Covid-19 Vaccine (1 - 2023- season) 2024 Influenza (Flu) vaccine (1 o f 1 - Influenza standard series) 07/27/2024 Care Teams Freight Clerk Relationship Specialty Start Date End Date Deepak Lechuga MD [address] [place] [id number] PCP - General 10/18/10
[2024-12-25 19:45] LABS: Anion Gap 2.9 mmol/L (3-11); BUN 15 mg/dL (7-18); CO2 32.1 mmol/L (21.0-32.0); CREATININE 0.9 mg/dL (0.55-1.02); Calcium 8.9 mg/dL (8.5-10.1); Calculated LDL 96 mg/dL (<100); Chloride 106 mmol/L (98-107); Cholesterol 184 mg/dL (<200); Estimated GFR 76.92 (mL/min/1.73m2); Glucose 94 mg/dL (74-106); HDL Cholesterol 71 mg/dL (40-60); Potassium 4.9 mmol/L (3.5-5.1); Sodium 141 mmol/L (136-145); Triglyceride 88 mg/dL (<150)
== END 2024-12-25 08:37 | disposition home or self-care (01) ==
LOC: NCHCN 08:36
PROVIDERS: PCP Internal Medicine; Visit Provider Internal Medicine
DX: Z13.220 Encounter for screening for lipoid disorders (principal)
CPT/HCPCS: 80048; 80061

== ENCOUNTER 2025-01-23 00:14 | Outpatient (CLI) | payer OTHER, SELFPAY ==
--- NOTE | 2025-01-23 09:13 | DI.MAMMO_ITS ---
Exam(s) MAMMO SCREENING EXAM: MAMMO SCREENING CLINICAL HISTORY: SCREENING MAMMO Z12.31 TECHNIQUE: Mammograms were interpreted according to the usual protocol including computer analysis w [employer] CAD system, tomosynthesis and C-view imaging. COMPARISON: 2015 through 2023 FINDINGS: The breasts are composed of heterogeneously dense fibroglandular densities, Breast Density category C . No suspicious masses or suspicious microcalcifications are seen. No skin thickening or abnormal axillary lymph nodes are seen. There has been no significant change from prior exams. IMPRESSION: BI-RADS Category 1, Negative mammogram. Yearly screening mammography is recommended. Breast Density Category C, heterogeneously Dense. The mammogram demonstrates the patient's breast tissue is dense. Dense breast tissue is very common a nd is not abnormal but dense breast tissue can make it harder to find cancer on a mammogram. Also, de nse breast tissue may increase breast cancer risk. This information about the result of the mammogram report was provided to the patient to raise their awareness. Use this report when you speak with the patient about their risks for breast cancer, which includes their family history. At that time, you may recommend additional screening tests (Ultrasound or MRI) as they might be useful based on their r isk. A negative radiographic report should not delay biopsy if a dominant or clinically suspicious mass is present. Up to ten percent of cancers are not identified on mammography. A negative report may reinforce clinical impression. Adenosis and dense breasts may obscure an underlying neoplasm. False positive reports average 6 to 10%.
== END 2025-01-23 00:34 ==
PROVIDERS: PCP Internal Medicine; Visit Provider Internal Medicine
DX: Z12.31 Encounter for screening mammogram for malignant neoplasm of breast (principal); R92.333 Mammographic heterogeneous density, bilateral breasts
CPT/HCPCS: 77063; 77067